=== PATIENT | female | born 1950 | race Caucasian/White ===

== ENCOUNTER 2017-02-02 14:02 | Day surgery (SDC) | payer MEDICARE, OTHER ==
[2016-11-09 16:43] VITALS: BP 136/66
--- OUTSIDE RECORDS SUMMARY | 2017-02-02 14:06 | XMS REPORT | Continuity of Care Document ---
:1950 Author Organization ([facility]) Address [address] [place] [address] Phone [phone] Care Team Providers Name Role Phone Alonso Howard Primary Care Provider [phone] Source Comments This disclosure is being made pursuant to the Care Everywhere program, applicable federal and state laws, and may not contain all informaitonavailable regarding this patient. ([facility]) Active Allergies and Adverse Reactions Allergen Noted Date Severity Reactions Comments [place] 06/28/2009 Angioedema Throat swelled, sweating, nervousness [place] Fl[place] 07/09/2012 Angioedema Throat swelling, sweating, nervousness Sulfadoxine Urticaria (Hives) Current Medications Prescription Sig. Disp. Refills Start Date End Date Status mirtazapine 15 mg Take 15 mg by mouth Active tablet at bedtime. multivitamin with Take 1 Tab by mouth Active minerals tablet daily. cyanocobalamin, Take 1 Tab by mouth Active VITAMIN B-12, PO daily. predniSONE 5 mg Take 5 mg by mouth Active tablet daily terbinafine HCl 1 % Apply topically Active cream daily as needed. (feet and between toes) oxyCODONE-acetamino Take 1 tablet by 60 tablet 0 04/27/2016 Active phen 10-325 mg per mouth 2 times daily tablet as needed. atorvastatin 80 mg Take 1 tablet (80 mg 30 tablet 1 05/05/2016 Active tablet total) by mouth at bedtime. nitroglycerin 0.4 Place 1 tablet (0.4 25 tablet 1 05/05/2016 Active mg SL tablet mg total) under the tongue every 5 minutes as needed for Chest pain. Maximum of 3 tablets in 15 minutes. famotidine 20 mg Take 1 tablet (20 mg 60 tablet 1 05/05/2016 Active tablet total) by mouth 2 times daily. aspirin 81 mg EC Take 1 tablet (81 mg 30 tablet 11 05/22/2016 Active tablet total) by mouth daily. ALPRAZolam 0.25 mg Take 0.25 mg by 0 07/02/2016 Active tablet mouth 3 times daily as needed. allopurinol 100 mg Take 200 mg by mouth Active tablet daily. tacrolimus 0.5 mg Take 1 capsule (0.5 60 capsule 0 10/12/2016 Active capsule mg total) by mouth 2 times daily. acetaminophen 325 Take 325-650 mg by Active mg tablet mouth every 6 hours as needed. furosemide 40 mg Take 1.5 tablets (60 90 tablet 0 12/01/2016 Active tablet mg total) by mouth 2 times daily. insulin lispro Inject 10 units 10 mL 2 12/01/2016 Active (HumaLOG) 100 subcutaneously unit/mL injection before meals. vial metoPROLol tartrate Take 1 tablet (25 mg 60 tablet 0 12/01/2016 Active 25 mg tablet total) by mouth every 12 hours. warfarin 1 mg Take 1 tablet (1 mg 30 tablet 0 12/01/2016 Active tablet total) by mouth every evening. ferrous sulfate 325 Take 1 tablet (325 90 tablet 0 12/02/2016 Active mg (65 mg iron) mg total) by mouth 3 tablet times daily. albuterol 2.5 mg/3 Use 3 mL by Active mL inhalation inhalation every 4 solution hours as needed. Active Problems Patient Care Coordination Note Family Conference: Family meeting was held on 05/12/2016 to discuss Goals of Care. Healthcare providers in attendance were primary team attending -Dr. Chuck Escobar -, Palliative Care attending -Dr. Brigid Doss-, and Palliative Care resident - Dr. Nicolas Carranza. Family members in attendance were patient, spouse -Elizabeth-, children -Ingris -, and Ingris's significant other -Nasir-. Aspects of patient's status discussed were medical status, prognosis, goals of care, functional status, DNR status and emotional support. Outcome of meeting was to "live longer without surgery" and stay as Full Code for now. Problem Noted Date Claudication, intermittent 10/19/2016 Shortness of breath 10/06/2016 Sepsis (A41.9) 08/26/2016 ICD (implantable cardioverter-defibrillator), biventricular, in situ 2015 Dyspnea on exertion 07/14/2016 Acute on chronic systolic congestive heart failure 07/14/2016 Diabetes mellitus type 2, uncontrolled 05/21/2016 Overview: A1c: 9.2 on 04/30/16 Essential hypertension, benign 05/21/2016 Chronic systolic heart failure, ACC/AHA stage C 05/21/2016 History of left bundle branch block (LBBB) 05/21/2016 Pulmonary hypertension, moderate to severe 05/21/2016 Moderate aortic insufficiency 05/21/2016 Paroxysmal atrial fibrillation 05/21/2016 Encounter for insertion of cardiac resynchronization therapy defibrillator (LENS MATCHER-D) - [employer] Acute on chronic systolic heart failure 05/21/2016 Acute kidney injury superimposed on chronic kidney disease 05/21/2016 Anticoagulation goal of INR 2 to 3 05/21/2016 Overview: Warfarin Documentation: Patient goal INR is 2.0-3.0 Duration of anticoagulation therapy: Indefinite Indication for anticoagulation therapy: Atrial Fibrillation Provider responsible for monitoring: PCP H/O: GI bleed 05/21/2016 Moderate aortic stenosis 05/21/2016 Goals of care, counseling/discussion 05/12/2016 Palliative care by specialist 05/12/2016 Acute cystitis without hematuria 05/03/2016 Chest pain 04/30/2016 NSTEMI (non-ST elevated myocardial infarction) 04/30/2016 Overview: Like Type II in the setting of ADHF and Cardiorenal Syndrome BCC (basal cell carcinoma) 01/13/2016 Urinary tract infection without hematuria 11/18/2015 Overview: Pain over renal transplant and LETICIA, responded to antibiotics and IVF. NICOLAS (renal artery stenosis) - transplant kidney 01/15/2015 Bleeding from wound 04/13/2014 Abdominal pain, left lower quadrant 04/13/2014 Cellulitis - gaspar. 02/19/2014 Open abdominal wall wound 01/09/2014 Urinary tract infection, E. coli 12/10/2013 Wound infection 12/10/2013 Fracture of femoral neck, left, closed 12/01/2013 Psoas abscess, left 12/01/2013 Severe left groin pain 11/30/2013 Atherosclerosis of [place] arteries of the extremities, unspecified 04/27/2013 Kidney replaced by transplant 03/07/2013 Overview: hx of kidney transplant on 02/25/13 CMV +D/-R. She has been maintained on Tacrolimus and Prednisone. Now appears to have non-oliguric LETICIA on CKD in allograft. Encounter for long-term (current) use of medications 03/07/2013 Overview: icd10 Aftercare following organ transplant 03/07/2013 Terminal aortic occlusion 03/01/2013 Thoracic aorta atherosclerosis 02/26/2013 Coarctation of aorta (preductal) (postductal) 02/25/2013 Overview: Discovered during renal transplant when flow in the iliacs was noted to be low considering pressures in the upper limbs. ESRD (end stage renal disease) 07/04/2012 Coronary artery disease 06/29/2012 Overview: S/p CABG in 2011 Anemia in chronic kidney disease(285.21) 03/15/2011 Secondary hyperparathyroidism of renal origin 03/15/2011 CKD (chronic kidney disease), stage V 12/19/2010 Gout 12/27/2009 HLD (hyperlipidemia) 12/27/2009 Osteoarthritis 12/27/2009 Vesicoureteral reflux with reflux nephropathy, NOS 01/23/2008 Resolved Problems Problem Noted Date Resolved Date Cardiogenic shock 04/30/2016 05/21/2016 Supratherapeutic INR 04/18/2016 05/21/2016 Volume depletion 11/18/2015 04/18/2016 Infection of vascular bypass graft 06/01/2014 06/05/2014 Pulmonary edema 12/10/2013 05/21/2016 Wound infection after surgery 03/22/2013 12/01/2013 Paroxysmal ventricular tachycardia 07/15/2012 07/15/2012 Hyperkalemia 07/04/2012 05/21/2016 Pre-transplant evaluation for CKD (chronic kidney disease) 02/19/20112013 Most Recent Encounters Date Type Specialty Providers Description 01/26/2017 Orders Only Transplant Camden Ureña, Dx: Kidney replaced JONNY/HOMER/ELKIN TAVERAS by transplant (Primary Dx) 01/04/2017 Hospital Encounter Radiology Tom Mac, Dx: H/O aortic coarctation repair 01/04/2017 Hospital Encounter Heart and Vascular Kai, Chief Comp: Patient MD Bridget Reported Reason For Visit 01/04/2017 Hospital Encounter Heart and Vascular Kai, Chief Comp: Patient MD Bridget Reported Reason For Visit 01/04/2017 Hospital Encounter Heart and Vascular Default, Other Chief Comp : Patient Billg - Defo Reported Reason For Kai, Visit MD Bridget 01/04/2017 Office Visit [facility] V[facility] Kai, Dx: Aortic MD Bridget coarctation (Primary Dx) 01/04/2017 Orders/Notes [facility] Von Roman GNP 12/10/2016 Orders Only Transplant Sanya Peterson, Dx: Kidney replaced DWIGHT TAVERAS by transplant (Primary Dx) 12/10/2016 Telephone Transplant Nella Green, Chief Comp: DWIGHT REYEZ Coordination Of Care 12/08/2016 Office Visit Heart and Vascular Lewis Young Dx: ICD ( implantable MD Jacob cardioverter-defibri llator), biventricular, in situ (Primary Dx) 12/04/2016 Office Visit Heart and Vascular Christiano Allen, Chief Comp: Patient MD Reported Reason For Visit 12/04/2016 Orders Only Transplant Camden Ureña, Dx: Kidney replaced DWIGHT TAVERAS by transplant (Primary Dx) 12/03/2016 Telephone Transplant Nella Green, Chief Comp: DWIGHT REYEZ Coordination Of Care 12/03/2016 Surgery General Surgery Kai, Canceled Carotid MD Bridget subclavian bypass and TEVAR 11/20/2016 Hospital Encounter Heart and Vascular Bridgette Sargent, Chief Comp: Patient IMAGE PROCESSING ENGINEER Reported Reason For Jose Luis Franklin Jr., MD 11/18/2016 Surgery Cardiology Arnie Modi Midline Catheter E, MD Placement 11/13/2016 Hospital Encounter Heart and Vascular Lewis Young Chief Comp: Venkata James MD Reported Reason For Visit 11/13/2016 Hospital Encounter Heart and Vascular Cecilia Higgins, Chief Comp: Patient Reported Reason For Visit 11/13/2016 Office Visit Heart and Vascular Christiano Allen, Dx: Chronic systolic MD heart failure, ACC/AHA stage C (Primary Dx) 11/13/2016 Surgery Radiology ANDREI Quinn OR PROCEDURE MD Bridget 11/13/2016 Surgery General Surgery Kai, coarctation repair MD Bridget with stent graft 11/12/2016 Anesthesia Event General Surgery Danial Mcclain MD 11/12/2016 Surgery Radiology Kai, Canceled VASJacob OR MD Bridget PROCEDURE 11/12/2016 Surgery General Surgery Kai, Canceled MATEO Gill MD 11/10/2016 Office Visit [facility] V[facility] Irene, Chief Comp: Patient MD Krish Reported Reason For Visit 11/10/2016 Hospital Encounter Heart and Vascular Irene, Chief Comp: Patient MD Krish Reported Reason For Visit 11/09/2016 - Hospital Encounter General Care Collin, Dx: Shortness of 12/02/2016 Inpatient - Adult MD Hazel breath (Primary Dx) Collin Freire MD Fatima, Urooj, MD Sharafuddin, Melhem, MD [place] Jayanna, Manju, MD Adhaduk, Mehul, MD Voruganti, Dani James MD 11/06/2016 Orders Only Transplant Sanya Peterson, Dx: Kidney replaced JONNY/DENISE TAVERAS by transplant (Primary Dx) 11/06/2016 Nurse Triage General Care Jennifer Rogers Chief Comp: IP Inpatient - Adult Gauri dairy helper Follow-up Call 11/06/2016 Telephone Transplant Nella Green, Chief Comp: DWIGHT REYEZ Coordination Of Care Immunizations Name Dates Previously Given Next Due Influenza, unspecified 09/18/2015,08/29/2009,10/06/2008,09/30/2000 Pneumococcal, unspecified 04/18/2012,12/26/2008 Social History Tobacco Use Types Packs/Day Years Used Date Former Smoker Cigarettes 1 1 Quit: 11/22/1982 Smokeless Tobacco: Never Used Tobacco Cessation:Counseling Given: Yes Comments:Quit 1982 Alcohol Use Drinks/Week oz/Week Comments No Last Filed Vital Signs Vital Sign Reading Time Taken Blood Pressure 135/77 01/04/2017 2:58 PM ENVIRONMENTAL SCIENCE PROFESSOR Pulse 78 01/04/2017 2:58 PM ENVIRONMENTAL SCIENCE PROFESSOR Temperature 37.8 C (100 F) 01/04/2017 2:58 PM ENVIRONMENTAL SCIENCE PROFESSOR Respiratory Rate 20 12/02/2016 7:32 AM ENVIRONMENTAL SCIENCE PROFESSOR Height 1.473 m (4' 9.99") 11/14/2016 1:58 PM ENVIRONMENTAL SCIENCE PROFESSOR Weight 63.4 kg (139 lb 12.4 oz) 12/02/2016 5:00 AM ENVIRONMENTAL SCIENCE PROFESSOR Body Mass Index 29.22 12/02/2016 5:00 AM ENVIRONMENTAL SCIENCE PROFESSOR Oxygen Saturation 100% 12/02/2016 7:32 AM ENVIRONMENTAL SCIENCE PROFESSOR Plan of Care Date Type Specialty Providers Description 07/05/2017 Appointment Heart and Vascular Bridget Quinn, Chief Comp: Patient MD Reported Reason For [address] [place] [address] [phone] (Fax) 07/05/2017 Appointment Srg Vascular Bridget Quinn, Chief Comp: Patient MD Reported Reason For [address] [place] [address] [phone] (Fax) Health Maintenance Due Date Last Done Comments Hepatitis B Vaccine (1 of 3 - 1950 Primary Series) Tdap Vaccine 1962 DIABETIC: Microalbumin 1969 Td Vaccine 1969 Cervical Cancer Screening 1981 Mammogram 1991 Colonoscopy 08/26/2001 DIABETIC: Foot Exam 05/05/2011 DIABETIC: Retinal Eye Exam 05/05/2011 Zoster Vaccine 2011 Influenza Vaccine: Seasonal 06/22/2016 09/18/2015, Additional history exists (#1) 08/29/2009, 10/06/2008 Osteoporosis Screening (DXA 2016 Bone Density) Pneumococcal Vaccine (1 of 2 2016 - PCV13) DIABETIC: Hemoglobin A1C 04/26/2017 10/26/2016, Additional history exists 04/30/2016, 04/19/2016 DIABETIC: Cholesterol 05/01/2017 05/01/2016, Additional history exists 12/23/2013, 05/30/2013 Diabetic: Hdl 05/01/2017 05/01/2016, Additional history exists 12/23/2013, 05/30/2013 Diabetic: Ldl 05/01/2017 05/01/2016, Additional history exists 12/23/2013, 05/30/2013 DIABETIC: Triglycerides 05/01/2017 05/01/2016, Additional history exists 12/23/2013, 05/30/2013 HCV Screening Completed 04/08/2011, 02/11/2011 Procedures from Last 3 Months Procedure Name Priority Date/Time Associated Comments Diagnosis ABSTRACTED BY BILLING Routine 11/13/2016 9:04 Shortness of breath Results for this STAFF PM ENVIRONMENTAL SCIENCE PROFESSOR procedure are in the results section. coarctation repair 11/13/2016 1:51 Shortness of breath with stent graft PM ENVIRONMENTAL SCIENCE PROFESSOR Results from Last [address] ANGIO CHEST, ABDOMEN& PELVIS W/WO ([id number], [id number]) (01/04/2017 2:49 PM) Impressions Impression: 1. Endovascular graft repair of the coarctation in the posterior part of the arch and upper descending thoracic aorta is appropriately located. No extravasation or endoleak seen. 2. Persistent bilateral right greater than left layering effusions, bibasilar consolidation and changes of chronic fluid overload appears stable. 3. Stable enlargement of the main pulmonary artery. Stable diffuse cardiomegaly. Mild right heart strain noted. 4. The abdomen and pelvis appears stable to the previous exam. Narrative Indication: Postop cooperation repair on 11/13/16 . Additional history from [facility] -past medical history of right renal transplant in 2012, coronary disease status post CABG in 2011, systolic heart failure, pulmonary HTN, AFib,Mild-moderate AI, HTN, Type 2 DM and history of aortic coarctation (distal to the left subclavian artery) s/p axillary femoral bypass at the time of transplant. Exam: CT angiogram of the chest, abdomen and pelvis. Study performed with 100 cc of Isovue-370. 3-D reconstructions and multiplanar reconstructions were reviewed. Comparison: CT chest abdomen and pelvis dated 12/21/2013. CT and U abdomen and pelvis dated 04/13/2014. Findings: The endovascular graft repair of the coarctation in the posterior part of the arch and upper descending thoracic aorta is appreciated. No endoleak seen. No extravasation of contrast. Chest: Changes of CABG appreciated. The rest of the thoracic and abdominal aorta grossly normal in caliber and shows scattered atherosclerotic changes. Diffuse cardiomegaly with four-chamber enlargement is stable. No pericardial effusion.. Enlarged main pulmonary artery is stable. No pulmonary thromboembolic disease. Right greater than left pleural effusions with compressive consolidation of the underlying lower lobes and mild pulmonary congestion in the lungs is noted. Changes appear similar to the radiograph of 11/27/2016. No pneumothorax seen. Postop changes in the sternum and mediastinum appreciated. The left chest wall pacemaker leads appear intact and terminate in the right atrium, right ventricle and coronary sinus. Multiple collaterals in the chest wall are appreciated again. The previously known Axillary femoral bypass has not opacified with contrast. Abdomen and pelvis: Mild reflux of contrast into the liver seen. Otherwise the abdominal organs including the presence of left anterior abdominal wall colostomy are stable. Multiple chronic diverticula are seen again. Small amount of ascites is noted. [place] kidneys are atrophic. The transplant kidney in the right upper quadrant is well opacified with contrast. Mild diffuse subcutaneous edema noted. Pelvic organs grossly unremarkable. No free air in the abdomen or pelvis. Urinary bladder shows a small diverticulum in the left lateral urinary bladder wall. Procedure Note Pelon, Incoming Imaging Results - Tue Jan 05, 2017 11:15 AM ENVIRONMENTAL SCIENCE PROFESSOR Indication: Postop cooperation repair on 11/13/16 . Additional history from [facility] -past medical history of right renal transplant in 2012, coronary disease status post CABG in 2011, systolic heart failure, pulmonary HTN, AFib, Mild-moderate AI, HTN, Type 2 DM and history of aortic coarctation (distal to the left subclavian artery) s/p axillary femoral bypass at the time of transplant. Exam: CT angiogram of the chest, abdomen and pelvis. Study performed with 100 cc of Isovue-370. 3-D reconstructions and multiplanar reconstructions were reviewed. Comparison: CT chest abdomen and pelvis dated 12/21/2013. CT and U abdomen and pelvis dated 04/13/2014. Findings: The endovascular graft repair of the coarctation in the posterior part of the arch and upper descending thoracic aorta is appreciated. No endoleak seen. No extravasation of contrast. Chest: Changes of CABG appreciated. The rest of the thoracic and abdominal aorta grossly normal in caliber and shows scattered atherosclerotic changes. Diffuse cardiomegaly with four-chamber enlargement is stable. No pericardial effusion.. Enlarged main pulmonary artery is stable. No pulmonary thromboembolic disease. Right greater than left pleural effusions with compressive consolidation of the underlying lower lobes and mild pulmonary congestion in the lungs is noted. Changes appear similar to the radiograph of 11/27/2016. No pneumothorax seen. Postop changes in the sternum and mediastinum appreciated. The left chest wall pacemaker leads appear intact and terminate in the right atrium, right ventricle and coronary sinus. Multiple collaterals in the chest wall are appreciated again. The previously known Axillary femoral bypass has not opacified with contrast. Abdomen and pelvis: Mild reflux of contrast into the liver seen. Otherwise the abdominal organs including the presence of left anterior abdominal wall colostomy are stable. Multiple chronic diverticula are seen again. Small amount of ascites is noted. [place] kidneys are atrophic. The transplant kidney in the right upper quadrant is well opacified with contrast. Mild diffuse subcutaneous edema noted. Pelvic organs grossly unremarkable. No free air in the abdomen or pelvis. Urinary bladder shows a small diverticulum in the left lateral urinary bladder wall. IMPRESSION Impression: 1. Endovascular graft repair of the coarctation in the posterior part of the arch and upper descending thoracic aorta is appropriately located. No extravasation or endoleak seen. 2. Persistent bilateral right greater than left layering effusions, bibasilar consolidation and changes of chronic fluid overload appears stable. 3. Stable enlargement of the main pulmonary artery. Stable diffuse cardiomegaly. Mild right heart strain noted. 4. The abdomen and pelvis appears stable to the previous exam. EXTERNAL CO2 (12/16/2016 9:25 AM) Component Value Range Ext CO2 35.4(H) 4-32.6 mmol/L Narrative Verified by Tanya Acevedo on 12/16/2016. EXTERNAL PLATELET COUNT (12/16/2016 9:25 AM) Component Value Range Ext Platelet Count 293 150-450 K/mm3 Narrative Verified by Tanya Acevedo on 12/16/2016. EXTERNAL WBC (12/16/2016 9:25 AM) Component Value Range Ext WBC Count 7.7 4.0-10.5 K/mm3 Narrative Verified by Tanya Acevedo on 12/16/2016. EXTERNAL HEMOGLOBIN (12/16/2016 9:25 AM) Component Value Range Ext Hemoglobin 8.8(L) 12.5-16.0 Narrative Verified by Tanya Acevedo on 12/16/2016. EXTERNAL POTASSIUM (12/16/2016 9:25 AM) Component Value Range Ext Potassium 4.4 3.4-4.6 mmol/L Narrative Verified by Tanya Acevedo on 12/16/2016. EXTERNAL CREATININE (12/16/2016 9:25 AM) Component Value Range Ext Creatinine 1.48(H) mg/dL Narrative Verified by Tanya Acevedo on 12/16/2016. EXTERNAL BLOOD UREA NITROGEN (BUN) (12/16/2016 9:25 AM) Component Value Range Ext BUN 46(H) 3-23 mg/dL Narrative Verified by Tanya Acevedo on 12/16/2016. EXTERNAL TACROLIMUS DRUG LEVEL (12/16/2016) Component Value Range Ext Tacrolimus 7.1 5-15 NG/ML BLOOD GLUCOSE, BEDSIDE (12/02/2016 8:42 AM)Only the most recent of83 resultswithin the time period is included. Component Value Range Glucose, Accu-Chek 163(H) 65-99 mg/dL Specimen Blood, capillary IRON PANEL (IRON, TRANSFERRIN AND % SATURATION) (12/01/2016 5:01 AM) Component Value Range Iron, Blood 25(L) 37-145 g/dL Transferrin 139(L) 200-360 mg/dL Iron % Saturation 13(L)Comment: 15-50 % Transferrin saturation is not reliable when there are high ferritin concentrations greater than 1,200 ng/mL. Specimen Blood FERRITIN (12/01/2016 5:01 AM) Component Value Range Ferritin 765.9(H) 13.0-150.0 ng/mL Specimen Blood TACROLIMUS DRUG LEVEL (12/01/2016 5:01 AM)Only the most recent of19 resultswithin the time period is included. Component Value Range Tacrolimus Drug Level 4.0(L)Comment: 5.0-20.0 ng/mL Analysis performed using the [employer] Tacrolimus immunoassay on the [employer]elry [employer]er platform. The general therapeutic range for tacrolimus is 5-20 ng/ mL. The optimal therapeutic range for a given patient may differ from this suggested range based on the indication for therapy, treatment phase (initiation or maintenance), use in combination with other drugs, time of specimen collection relative to prior dose, type of transplanted organ, and/or the therapeutic approach of the transplant center. Specimen Whole Blood PT/INR (PROTHROMBIN TIME/INR) VENOUS (12/01/2016 5:01 AM)Only the most recent of11 resultswithin the time period is included. Component Value Range PT (Prothrombin Time) 26(H) 9-12 secs INR 2.7 <4.0 Specimen Blood BASIC METABOLIC PANEL W/ CALCIUM (CHEM 8) (12/01/2016 5:01 AM)Only the most recent of24 resultswithin the time period is included. Component Value Range Sodium 141 135-145 mEq/L Potassium 3.9 3.5-5.0 mEq/L Chloride 103 95-107 mEq/L CO2 28 22-29 mEq/L Anion Gap 10 8-18 mEq/L BUN 37(H) 10-20 mg/dL Creatinine 1.2(H)Comment: 0.5-1.0 mg/dL Creatinine switched to enzymatic method on 03/31/2011.GFR equation switched to IDMS-traceable MDRD equation on 03/31/2011. Calculated GFR values are not valid in clinical settings where serum creatinine is changing. Glucose 80Comment: 65-99 mg/dL The Expert Committee on the Diagnosis and Classification of Diabetes has defined impaired fasting glucose as greater than or equal to 100 mg/dL but less than 126 mg/dL.(Diabetes Care 28 (Suppl 1)S41,2005) Calcium 8.7 8.5-10.5 mg/dL Calculated GFR 45(L) >60 mL/min/1.73 m2 Specimen Blood CBC (COMPLETE BLOOD COUNT) (12/01/2016 5:01 AM)Only the most recent of19 resultswithin the time period is included. Component Value Range WBC Count 7.4 3.7-10.5 K/MM3 RBC Count 2.58(L) 4.00-5.20 M/MM3 Hemoglobin 7.9(L) 11.9-15.5 g/dL Hematocrit 27(L) 35-47 % MCV (Mean Corpuscular Volume) 106(H) 82-99 FL MCH (Mean Corpuscular Hemoglobin) 31 25-35 PG MCHC (Mean Corpuscular Hemoglobin Concentration) 29(L) 32-36 % Platelet Count 231 150-400 K/MM3 MPV (Mean Platelet Volume) 9.5 9.4-12.3 FL RBC Dist Width-STD 83.8(H) 36.4-46.3 FL RBC Distrib Width 21.5(H) 9.0-14.5 % Nucleated RBC 0 /100 WBC Specimen Whole Blood CHEST- PA& LATERAL (11/27/2016 12:57 PM) Impressions Findings/Impression: Cardiomegaly with moderate vascular congestion is stable. Bibasilar paramedian consolidation, consistent with atelectasis/collapse is stable. A moderate right pleural effusion has increased slightly from prior. Prominent diffuse vascular calcifications are stable. A right PICC terminates in the mid right subclavian. Right atrial and biventricular pacing leads as well as aortic stent appear stable. Narrative Procedure: CHEST- PA & LATERAL Clinical Indication: Shortness of breath,? Pleural effusion Technique: PA and lateral chest radiograph Comparison: Chest radiographs dated 11/09/2016 through 11/17/2016. Procedure Note [facility], Incoming Imaging Results - WedNov 27, 2016 1:09 PM ENVIRONMENTAL SCIENCE PROFESSOR Procedure: CHEST- PA & LATERAL Clinical Indication: Shortness of breath,? Pleural effusion Technique: PA and lateral chest radiograph Comparison: Chest radiographs dated 11/09/2016 through 11/17/2016. IMPRESSION Findings/Impression: Cardiomegaly with moderate vascular congestion is stable. Bibasilar paramedian consolidation, consistent with atelectasis/collapse is stable. A moderate right pleural effusion has increased slightly from prior. Prominent diffuse vascular calcifications are stable. A right PICC terminates in the mid right subclavian. Right atrial and biventricular pacing leads as well as aortic stent appear stable. BLOOD CELL MORPHOLOGY (11/27/2016 6:28 AM)Only the most recent of6 resultswithin the time period is included. Component Value Range Schistocytes 1+ Tear Drop 1+ Basophilic Stippling Present Specimen Whole Blood POTASSIUM (11/26/2016 4:12 PM) Component Value Range Potassium 4.7 3.5-5.0 mEq/L Specimen Blood ECHO ADULT - ECHOCARDIOGRAM, TRANSTHORACIC (11/20/2016 7:53 AM) Component Value Range Interpretation Summary TRANSTHORACIC ECHOCARDIOGRAM S/p TAVR on 11/13/2016.Complex story includes PVD, coarctation of the aorta (pre- and post-ductal).NSTEMI (demannd).TTE for progress and surveillance. Upper limit of normal left ventricular size. Mild concentric left ventricular hypertrophy Severely decreased LV systolic function. LV Ejection Fraction=28% (based on Biplane Method of Discs).Unchanged. Prior LVEF 32% by Ron/s rule. E/E' ratio is 32, which predicts an elevated LV filling pressure. Gr 4 LV diastolic dysfunction (irreversible restrictive pattern). Left ventricular global hypokinesis Mild mitral regurgitation by color Doppler. Moderate to severe Tricuspid regurgitation by Doppler. RV/RA peak instantaneous systolic gradient=64mmHg. Doppler findings support moderate pulmonary hypertension Patient Height (cm) 144.8 cm Patient Weight (kg) 66.2 kg Systolic Pressure (mmHg) 127 mmHg Diastolic Pressure (mmHg) 82 mmHg BSA (meters^2) 1.6 m^2 Left Ventricle (LV) Upper limit of normal left ventricular size. Mild concentric left ventricular hypertrophy Severely decreased LV systolic function. LV Ejection Fraction=28% (based on Biplane Method of Discs). E/E' ratio is 32, which predicts an elevated LV filling pressure. Gr 4 LV diastolic dysfunction (irreversible restrictive pattern). Left ventricular global hypokinesis Right Ventricle (RV) Visualization of the RV chamber is limited due to shadowing artifact There is a pacemaker lead in the right ventricle. Right ventricular function cannot be assessed due to poor image quality. Left and Right Atria (LA, RA) Severely enlarged left atrial size. LA ESV index=48 ml/m2. Severely enlarged right atrial chamber size Mitral Valve (MV) Moderately calcified mitral annulus Mild mitral regurgitation by color Doppler. Tricuspid Valve (TV) Catheter induced TR, moderate. Moderate to severe Tricuspid regurgitation by Doppler. RV/RA peak instantaneous systolic gradient=64mmHg. Doppler findings support moderate pulmonary hypertension Aortic Valve (AoV) Mild to moderate aortic insufficiency by doppler. Central AI jet. AoV doppler pressure [id number] TAVR (bioprosthetic) Aortic valve peak instantaneous gradient=21 mmHg. Aortic valve mean gradient=9 mmHg. Procedures Complete 2D with Doppler, Color Flow and image documentation ( [id number]) I personally viewed the echocardiogram and approve the above interpretation Inf. Vena Cava (IVC) / Pulm. Veins A normal IVC diameter which collapses less than 50% would support an RA pressure of 8 mmHg (range 5-10 mmHg). Technical Comments Unable to move patient - Imaging performed in supine position Primary ICD-9 Code Aortic valve disorders (424.1) Bioprosthetic valve replacement (V42.2) IVSd 1.2 cm LVIDd 4.6 cm LVIDs 4.2 cm LVPWd 1.1 cm IVS/LVPW 1.1 LA dimension 4.4 cm LVAd ap4 28.8 cm^2 EF(MOD-sp4) 24.5 % MV E max vinh 142.1 cm/sec MV A max vinh 72.6 cm/sec MV E/A 2.0 MV dec time 0.18 sec Ao V2 max 218.5 cm/sec Ao max PG 19.2 mmHg Ao max PG (full) 14.1 mmHg Ao V2 mean 137.1 cm/sec Ao mean PG 8.7 mmHg Ao V2 VTI 39.3 cm AI dec slope 347.4 cm/sec^2 AI P1/2t 313.0 msec LV V1 max 112.7 cm/sec LV V1 mean 76.3 cm/sec LV V1 VTI 23.4 cm TR Max vinh 397.7 cm/sec Low Range of LVEF 28 High Range of LVEF 28 Reason For Study S/p TAVR for coarctation of aorta Pharmacy Analyst Gerri Yanes Interpreting Physician Jose Luis Franklin MD electronically signed on 2016-11-20 10:19:24.007 HAIRSPRING ADJUSTER MIDLINE (ONLY ORDERED BY PICC TEAM) (11/18/2016 5:15 PM)DIFFERENTIAL ( 11/18/2016 4:18 PM)Only the most recent of2 resultswithin the time period is included. Component Value Range % Neutrophils-Auto Diff 93.4 % Neutrophils-Auto Diff 33873(H) 4168-2971 /MM3 % Lymphocytes-Auto Diff 1.7 % Lymphocytes-Auto Diff 190(L) 875-3300 /MM3 % Monocytes-Auto Diff 3.4 % Monocytes-Auto Diff 380 130-860 /MM3 % Eosinophils-Auto Diff 0.5 % Eosinophils-Auto Diff 60 40-390 /MM3 % Basophils 0.1 % Basophils-Auto Diff 10 10-136 /MM3 % Immature Granulocytes-Auto Diff 0.9 % Immature Granulocytes-Auto Diff 100 /MM3 Specimen Whole Blood CBC (COMPLETE BLOOD COUNT) (11/18/2016 4:18 PM)Only the most recent of2 resultswithin the time period is included. Component Value Range WBC Count 11.3(H) 3.7-10.5 K/MM3 RBC Count 3.17(L) 4.00-5.20 M/MM3 Hemoglobin 10.0(L) 11.9-15.5 g/dL Hematocrit 32(L) 35-47 % MCV (Mean Corpuscular Volume) 102(H) 82-99 FL MCH (Mean Corpuscular Hemoglobin) 32 25-35 PG MCHC (Mean Corpuscular Hemoglobin Concentration) 31(L) 32-36 % Platelet Count 196 150-400 K/MM3 MPV (Mean Platelet Volume) 9.8 9.4-12.3 FL RBC Dist Width-STD 73.8(H) 36.4-46.3 FL RBC Distrib Width 20.1(H) 9.0-14.5 % Nucleated RBC 0 /100 WBC Specimen Whole Blood CBC WITH DIFFERENTIAL (11/18/2016 4:18 PM)Only the most recent of2 resultswithin the time period is included. Specimen Whole Blood Narrative The following orders were created for panel order CBC WITH DIFFERENTIAL. Procedure Abnormality Status --------- ------ CBC (COMPLETE BLOOD COUNT)[[id number]] AbnormalFinal result DIFFERENTIAL[[id number]] AbnormalFinal result Please view results for these tests on the individual orders. URINE MICROSCOPIC (11/18/2016 3:21 PM)Only the most recent of2 resultswithin the time period is included. Component Value Range White Blood Cells, Urine 64(H) 0-5 /HPF Red Blood Cells, Urine 22(H) 0-2 /HPF Bacteria, Urine Few(A) /HPF Squamous Epithelial Cells, Urine 34(H) <=10 /LPF Transitional Epithelial Cells, Urine 6 <=10 /LPF Hyaline Cast, Urine 65(H) <=10 /LPF Mucous-Urine Rare None, Rare Specimen Urine URINALYSIS (11/18/2016 3:21 PM)Only the most recent of2 resultswithin the time period is included. Component Value Range Color, Urine Sima(A) Straw, Pale Yellow, Yellow, Clear, None Clarity, Urine Slightly Cloudy(A) Clear pH, Urine 5.0 <9.0 Glucose, Urine Negative Negative Blood, Urine 1+(A) Negative Ketones, Urine Negative Negative Protein, Urine 2+(A) Negative Urobilinogen, Urine Normal Normal Bilirubin, Urine Negative Negative Leukocyte Esterase, Urine 3+(A) Negative Nitrite, Urine Negative Negative Spec Jefferson, Urine 1.025 1.000-1.030 Specimen Urine CHEST - AP/PA (11/17/2016 11:39 AM)Only the most recent of5 resultswithin the time period is included. Impressions Impression: Stable exam. Persistent moderate-sized right pleural effusion. Narrative Procedure: CHEST - AP/PA Technique: Portable AP chest radiograph Comparison: Chest radiograph(s) dated: 11/15/2016. Clinical Indication: Hypoxia, dyspnea Findings: Stable moderate-sized right pleural effusion, allowing for differences in positioning. No pneumothoraces. No lobar consolidations. Stable moderate cardiomegaly, without overt pulmonary vascular congestion. Stable postoperative changes in the mediastinum. Procedure Note [facility], Incoming Imaging Results - Tue Nov 17, 2016 5:46 PM ENVIRONMENTAL SCIENCE PROFESSOR Procedure: CHEST - AP/PA Technique: Portable AP chest radiograph Comparison: Chest radiograph(s) dated: 11/15/2016. Clinical Indication: Hypoxia, dyspnea Findings: Stable moderate-sized right pleural effusion, allowing for differences in positioning. No pneumothoraces. No lobar consolidations. Stable moderate cardiomegaly, without overt pulmonary vascular congestion. Stable postoperative changes in the mediastinum. IMPRESSION Impression: Stable exam. Persistent moderate-sized right pleural effusion. ABDOMEN AP SUPINE (11/17/2016 11:39 AM) Narrative Procedure: ABDOMEN AP SUPINE Clinical Indication: Abdominal pain Comparison: 12/11/2013 Findings / Impression: Bowel gas pattern is nonobstructive. 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 Cholecystectomy clips in the right upper quadrant. Scattered vascular calcifications. Bones are normal for age. Procedure Note [facility], Incoming Imaging Results - Tue Nov 17, 2016 5:42 PM ENVIRONMENTAL SCIENCE PROFESSOR Procedure: ABDOMEN AP SUPINE Clinical Indication: Abdominal pain Comparison: 12/11/2013 Findings / Impression: Bowel gas pattern is nonobstructive. 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 Cholecystectomy clips in the right upper quadrant. Scattered vascular calcifications. Bones are normal for age. LACTIC ACID, WHOLE BLOOD ([facility]) (11/17/2016 10:55 AM)Only the most recent of4 resultswithin the time period is included. Component Value Range Lactic Acid, Whole Blood 0.8Comment: 0.5-2.0 mEq/L Glycolate, the principle toxic metabolite of ethylene glycol, can cause artifactual elevation of measured lactate. Specimen Blood PTT (PARTIAL THROMBOPLASTIN TIME) (11/17/2016 6:37 AM)Only the most recent of13 resultswithin the time period is included. Component Value Range PTT 30 22-31 secs Specimen Blood POTASSIUM ([facility]) (11/14/2016 12:52 AM)Only the most recent of2 resultswithin the time period is included. Component Value Range Potassium, Whole Blood 4.5Comment: 3.5-5.0 mEq/L Sample run on whole blood.Hemolysis is not measured. Specimen Blood VASC OR CASE (11/13/2016 9:04 PM) Narrative Bridget Quinn MD 11/13/20169:04 PM OR CASE: coarctation repair with stent graft Post-Op Procedure Note - Vascular Surgery Date: 11/13/16 Service: Surgery-Vascular Location: MAIN OR Preoperative Diagnosis: * Shortness of breath [R06.02] Operation/Procedure: coarctation repair with stent graft (Bilateral) Postoperative Diagnosis: * Shortness of breath [R06.02] Surgeon(s): * Bridget Quinn MD - Primary * Rogelio Valenzuela MD - Resident - Assisting Findings: See below Estimated Blood Loss: None/Minimal Specimens: None Anesthesia:General Fluid Replacement: lactated ringers (LR) continuous infusion: 400 ml sodium chloride 0.9% continuous infusion: 100 ml Implants: Implant Name Type Inv. Item Serial No. Seals Engraver Lot No. LRB No. Used Action STENT CP COVERED MOUNTED 20MM X 4CM [id number] - [id number] STENT CP COVERED MOUNTED 20MM X 4CM [id number] B_[id number] N/A 1 Implanted Fluoro Time:13.4 minutes Radiation Dose:1139 mGy Anticoagulation: HEParin 1000 unit/mL injection: 6000 Units protamine 10 mg/mL injection: 20 mg Operative Report Completion: See separate report by Dr. Quinn Post-Op Plan: Drains: None Antibiotics: Prophylactic Anticoagulation: Not indicated Post Op Studies/Consults: Not applicable Intended Discharge: Unknown Intended Outpatient Follow-Up: One Month Intended Outpatient Studies: Not Applicable Other: Not Applicable ECG - EKG 12 LEAD (11/13/2016 7:35 PM)Only the most recent of3 resultswithin the time period is included. Component Value Range ECG SEVERITY - ABNORMAL ECG - VENT. RATE 63 bpm RR 952 ms P-R INTERVAL 147 ms QRSD INTERVAL 148 ms QT INTERVAL 508 ms QTC INTERVAL 521 ms P AXIS 44 degrees QRS AXIS 207 degrees T WAVE AXIS 141 degrees REPORT A-V DUAL-PACED RHYTHM WITH SOME INHIBITION [Remains] SIGNIFICANT RATE DECREASE Interpreting Physician: Jose Luis Franklin MD VASC OR PROCEDURE (11/13/2016 6:55 PM)ARTERIAL BLOOD GAS ([facility]) (11/13/2016 6:38 PM)Only the most recent of3 resultswithin the time period is included. Component Value Range pH, Arterial 7.31(L) 7.35-7.45 pCO2, Arterial 42 35-45 torr pO2, Arterial 151(H) 80-90 torr Base Excess, Arterial -5(L) -2-2 mEq/L Bicarbonate, Arterial 21(L) 22-26 mEq/L Total CO2, Arterial 22(L) 24-32 mEq/L Temperature, Arterial 37.0 Degrees C Specimen Blood PHOSPHORUS (11/13/2016 6:38 PM) Component Value Range Phosphorus 5.1(H)Comment:New reference range installed 09/03/15. 2.5-4.5 mg/ dL Specimen Blood MAGNESIUM (11/13/2016 6:38 PM)Only the most recent of3 resultswithin the time period is included. Component Value Range Magnesium 2.3 1.5-2.9 mg/dL Specimen Blood RED BLOOD CELLS DISPENSE FROM BLOOD BANK (11/13/2016 5:18 PM)Only the most recent of2 resultswithin the time period is included. Component Value Range Blood Coding System [id number] Blood Product Volume 325 Blood Product ABORH A Pos Blood Unit Number [id number] BLOOD DISPENSE STATUS RET Blood Product Type Red Blood Cells Blood Product Code [id number] Blood Coding System [id number] Blood Product Volume 325 Blood Product ABORH A Pos Blood Unit Number [id number] BLOOD DISPENSE STATUS RET Blood Product Type Red Blood Cells Blood Product Code [id number] Blood Coding System [id number] Blood Product Volume 325 Blood Product ABORH A Pos Blood Unit Number [id number] BLOOD DISPENSE STATUS RET Blood Product Type Red Blood Cells Blood Product Code G6264A89 Blood Coding System [id number] Blood Product Volume 325 Blood Product ABORH A Pos Blood Unit Number [id number] BLOOD DISPENSE STATUS RET Blood Product Type Red Blood Cells Blood Product Code [id number] ACTIVATED CLOTTING TIME - OR (11/13/2016 3:40 PM) Component Value Range ACT (Activated Clotting Time) - OR 245(H) 74-137 secs Specimen Blood FIBRINOGEN (11/13/2016 2:16 PM) Component Value Range Fibrinogen 345 180-400 mg/dL Specimen Blood GLUCOSE ([facility]) (11/13/2016 2:16 PM) Component Value Range Glucose, Whole Blood 118(H) 65-99 mg/dL Specimen Blood CHLORIDE ([facility]) (11/13/2016 2:16 PM) Component Value Range Chloride, Whole Blood 109(H) 95-107 mEq/L Specimen Blood SODIUM ([facility]) (11/13/2016 2:16 PM) Component Value Range Sodium, Whole Blood 138 135-145 mEq/L Specimen Blood HEMOGLOBIN& CALCULATED HEMATOCRIT - ([facility]) (11/13/2016 2: 16 PM) Component Value Range Hemoglobin - CCL 10.8(L) 11.9-15.5 g/dL Hematocrit (Calc) - CCL 33(L) 35-47 % Specimen Blood CALCIUM, IONIZED ([facility]) (11/13/2016 2:16 PM) Component Value Range Ionized Calcium 4.9 3.8-5.2 mg/dL Specimen Blood ECHO ADULT - INTRAOPERATIVE ECHOCARDIOGRAPHIES TRANSESOPHAGEAL (11/13/2016 2: 11 PM) Component Value Range Interpretation Summary TRANSESOPHAGEAL ECHOCARDIOGRAM Limited VASILE for intraopertive monitoring Moderate to severely decreased LV function Estimated EF 34% by Ron's methos Dilated LV Dilated RV AICD/ Pacemaker lead visualized in the RV Moderate MR Mild TR Mild AR Coaractation of aorta noticed in the distal part of arch and proximal descending aorta Stent visualized and blood flow demostrated after stent placement No significant change in the cardaic evaluation after stent placement Left Ventricle (LV) Moderately enlarged left ventricle. No obvious LV thrombus noted. Probably normal LV wall thickness. Moderate to severely decreased LV systolic function. (Ron's Rule) LV Ejection Fraction=34%. No regional wall motion abnormalities noted. Right Ventricle (RV) Moderately enlarged right ventricular size. There is a pacemaker lead in the right ventricle. There is normal right ventricular wall thickness. Moderately decreased right ventricular systolic function Left and Right Atria (LA, RA) LA chamber size: enlarged. Enlarged right atrial size. Mitral Valve (MV) Thickened mitral valve leaflets Calcified mitral annulus. Mild mitral stensosi based on color flow doppler Moderate mitral regurgitation by color Doppler. Tricuspid Valve (TV) Probably normal tricuspid valve morphology Mild Tricuspid regurgitation by color Doppler. Aortic Valve (AoV) Aortic valve leaflets appear calcified. Thickened aortic valve leaflets Trileaflet Aortic valve Mild aortic insufficiency by color Doppler. Mild aortic valve stenosis. Pulmonic Valve (PV) Visualization of the Pulmonic Valve is limited Aorta and Pulmonary Artery (Ao, PA) The aortic root is normal size. The aortic root, when measured at the annulus, is normal in size. Aortic coarctation is present. Descending aorta atheroma noted The pulmonary artery is normal size. Pericardium/Pleura Small left pleural effusion Procedures VASILE ([id number]) Limited Doppler ([id number]) Color Flow ([id number]) 3D echocardiogram without postprocessing ([id number]) I was present for the entire procedure Inf. Vena Cava (IVC) / Pulm. Veins IVC not visualized LVAd ap4 32.5 cm^2 EF(MOD-sp4) 33.9 % Low Range of LVEF 34 High Range of LVEF 34 Reason For Study Intra op VASILE for hemodynamic monitroing - stent in the arch and desecding aorta Pharmacy Analyst Flaquito Stokes Interpreting Physician Flaquito Stokes MD electronically signed on 2016-11-16 14:02:57.59 UREA NITROGEN-URINE,RANDOM (11/12/2016 3:14 PM) Component Value Range Urea Nitrogen, Urine, Random 146 mg/dL Specimen Urine CREATININE-URINE, RANDOM (11/12/2016 3:14 PM) Component Value Range Creatinine, Urine, Random 87.8 mg/dL Specimen Urine URINE CULTURE, ROUTINE AEROBIC (11/12/2016 3:14 PM) Component Value Range Quantitative Culture >100,000 CFU/mL Citrobacter amalonaticus(A) Quantitative Culture >100,000 CFU/mL Citrobacter amalonaticus(A)Comment:#2 Specimen Culture - Urine, Midstream clean catch Narrative Identification performed by MALDI-TOF mass spectrometry (MS).The performance characteristics of MALDI-TOF MS were determined by the [facility].It has not been cleared orApproved by the FDA. The FDA has determined that such clearance or approval is not necessary.This test is for clinical purposes. It should not be regarded as investigational or for research.The laboratory is certified under the Clinical Laboratory Improvement Amendments of 1988 (CLIA) as qualified to perform high complexity clinical laboratory testing. Organism Antibiotic Method Susceptibility Citrobacter amalonaticus CEFTRIAXONE <=1: Susceptible Citrobacter amalonaticus CIPROFLOXACIN <=0.25: Susceptible Citrobacter amalonaticus GENTAMICIN <=1: Susceptible Citrobacter amalonaticus NITROFURANTOIN <=16: Susceptible Citrobacter amalonaticus PIPERACILLIN/TAZOBACTAM <=4: Susceptible Citrobacter amalonaticus TRIMETHOPRIM/SULFA <=1: Susceptible Citrobacter amalonaticus CEFAZOLIN 32: Intermediate Citrobacter amalonaticus CEFTRIAXONE <=1: Susceptible Citrobacter amalonaticus CIPROFLOXACIN <=0.25: Susceptible Citrobacter amalonaticus GENTAMICIN <=1: Susceptible Citrobacter amalonaticus NITROFURANTOIN 32: Susceptible Citrobacter amalonaticus PIPERACILLIN/TAZOBACTAM <=4: Susceptible Citrobacter amalonaticus TRIMETHOPRIM/SULFA <=1: Susceptible Citrobacter amalonaticus CEFAZOLIN 32: Intermediate PLATELET COUNT (11/12/2016 4:46 AM)Only the most recent of2 resultswithin the time period is included. Component Value Range Platelet Count 210 150-400 K/MM3 Specimen Whole Blood HEMOGLOBIN (11/12/2016 4:46 AM) Component Value Range Hemoglobin 10.7(L) 11.9-15.5 g/dL Specimen Whole Blood MICROSCOPIC URINALYSIS (11/11/2016 6:33 PM) Component Value Range White Blood Cells, Urine >180(H) 0-5 /HPF Red Blood Cells, Urine 7(H) 0-2 /HPF Bacteria, Urine Few(A) /HPF Squamous Epithelial Cells, Urine 204(H) <=10 /LPF Transitional Epithelial Cells, Urine 5 <=10 /LPF Renal Tubular Cells, Urine 8(H) <1 /LPF Mucous-Urine Rare None, Rare Specimen Urine URINALYSIS WITH REFLEX CULTURE (11/11/2016 6:33 PM) Component Value Range Color, Urine Sima(A) Straw, Pale Yellow, Yellow, Clear, None Clarity, Urine Cloudy(A) Clear pH, Urine 7.0 <9.0 Spec Jefferson, Urine 1.015 1.000-1.030 Glucose, Urine Negative Negative Blood, Urine 1+(A) Negative Ketones, Urine Negative Negative Protein, Urine 2+(A) Negative Urobilinogen, Urine Normal Normal Bilirubin, Urine Negative Negative Leukocyte Esterase, Urine 3+(A) Negative Nitrite, Urine Negative Negative Specimen Urine URINALYSIS WITH REFLEXED CULTURE AND MICROSCOPIC EXAM (11/11/2016 6:33 PM) Specimen Culture - Urine, Midstream clean catch Narrative The following orders were created for panel order URINALYSIS WITH REFLEXED CULTURE AND MICROSCOPIC EXAM. Procedure Abnormality Status --------- ------ URINALYSIS WITH REFLEX C...[[id number]]AbnormalFinal result MICROSCOPIC URINALYSIS[[id number]] Abnormal Final result URINE CULTURE, REFLEXED[[id number]]Abnormal Final result Please view results for these tests on the individual orders. URINE CULTURE, REFLEXED (11/11/2016 6:33 PM) Component Value Range Quantitative Culture >100,000 CFU/mL Citrobacter amalonaticus(A) Specimen Culture - Urine, Midstream clean catch Narrative Identification performed by MALDI-TOF mass spectrometry (MS).The performance characteristics of MALDI-TOF MS were determined by the [facility].It has not been cleared orApproved by the FDA. The FDA has determined that such clearance or approval is not necessary.This test is for clinical purposes. It should not be regarded as investigational or for research.The laboratory is certified under the Clinical Laboratory Improvement Amendments of 1988 (CLIA) as qualified to perform high complexity clinical laboratory testing. Organism Antibiotic Method Susceptibility Citrobacter amalonaticus AMPICILLIN >=32: Resistant Citrobacter amalonaticus AMPICILLIN/SULBACTAM <=2: Susceptible Citrobacter amalonaticus CEFTRIAXONE <=1: Susceptible Citrobacter amalonaticus CIPROFLOXACIN <=0.25: Susceptible Citrobacter amalonaticus GENTAMICIN <=1: Susceptible Citrobacter amalonaticus NITROFURANTOIN 64: Intermediate Citrobacter amalonaticus PIPERACILLIN/TAZOBACTAM <=4: Susceptible Citrobacter amalonaticus TRIMETHOPRIM/SULFA <=1: Susceptible Citrobacter amalonaticus CEFAZOLIN >=64: Resistant TYPE AND SCREEN (BLOOD TYPE(ABORH) AND RBC ANTIBODY SCREEN) (11/11/2016 10:34 AM ) Component Value Range ABORH A Positive Specimen Expiration Date 2016-11-14 Antibody Screen Negative Specimen Blood TROPONIN T (11/10/2016 1:14 PM)Only the most recent of4 resultswithin the time period is included. Component Value Range Troponin-T 0.29(H) <=0.10 ng/mL Specimen Blood VASC LOWER EXT VENOUS DUPLEX (UNILATERAL) (11/10/2016 11:57 AM)CHEST- AP& LATERAL (11/09/2016 7:14 PM) Addenda Addendum by Ranjan Kraft MD on 11/09/2016 8:33 PM Final report was reviewed with Dr. Roper at 8:33 PM. Impressions Findings/impression: The right-sided ICD is unchanged. Postoperative changes in the mediastinum otherwise grossly similar to prior evaluation. There is mild increase in the pre-existing right pleural effusion with associated right base opacity which could be atelectasis or pneumonia. Stable enlarged cardiac mediastinal silhouette. There is mild to moderate pulmonary vascular congestion, slightly worse. Narrative Procedure: CHEST- AP & LATERAL Technique: AP and lateral chest radiograph Comparison: 10/26/2016. Clinical Indication: Shortness of breath. A. fib, coarctation of the aorta Procedure Note Pelon, Incoming Imaging Results - Mon Nov 09, 2016 7:49 PM ENVIRONMENTAL SCIENCE PROFESSOR Procedure: CHEST- AP & LATERAL Technique: AP and lateral chest radiograph Comparison: 10/26/2016. Clinical Indication: Shortness of breath. A. fib, coarctation of the aorta IMPRESSION Findings/impression: The right-sided ICD is unchanged. Postoperative changes in the mediastinum otherwise grossly similar to prior evaluation. There is mild increase in the pre-existing right pleural effusion with associated right base opacity which could be atelectasis or pneumonia. Stable enlarged cardiac mediastinal silhouette. There is mild to moderate pulmonary vascular congestion, slightly worse. NT-PROBNP (11/09/2016 7:14 PM) Component Value Range NT-ProBNP 763098(H)Comment: 0-353 pg/mL Reference ranges in adults reflect 95th percentiles for NT-pro-BNP levels in patients without congestive heart failure (CHF). Pediatric reference ranges for patients 18 years and younger are from Sarah et al. Pediatr Cardiol 30:3-8, 2008. Age Reference Range (pg/mL) Pediatric (boys and girls): 0-30 days:263 - 6500 1 month-11 months: 37 - 1000 12 months-35 months: 39 -675 3 years to 6 years:23 -327 7 years to 14 years: 10 -242 15 years to 18 years: 6 -207 Adult Males: 19-44 years: 0 -93 45-54 years: 0 - 138 55-64 years: 0 - 177 65-74 years: 0 - 229 75 years or older: 0 - 852 Adult Females: 19-44 years: 0 - 178 45-54 years: 0 - 192 55-64 years: 0 - 226 65-74 years: 0 - 353 75 years or older: 0 - 624 For adult chronic CHF patients according to [place] [employer] ([place]HA) Functional Class for NT-proBNP levels in pg/mL: [id number] Mean percentile percentile Class I: [id number] Class II:[id number] Class III: [id number] Class IV:[id number] Among patients with dyspnea, NT-proBNP is highly sensitive for the detection of acute CHF. In addition, a NT-proBNP < 300 pg/mL effectively rules out acute CHF, with 99% negative predictive value. Elevations in NT-proBNP levels may be observed in states other than left ventricular congestive failure including: acute coronary syndromes, right heart strain/failure (including pulmonary embolism an d cor pulmonale), critical illness, and renal failure. Falsely low NT-proBNP in CHF patients may be observed in increased body mass index. Specimen Blood HEPATIC FUNCTION PANEL (11/09/2016 7:14 PM) Component Value Range Albumin 2.9(L) 3.4-4.8 g/dL ALP 142(H) 35-104 U/L Bilirubin Total 0.7 <=1.2 mg/dL Bilirubin, Direct 0.3(H) 0.0-0.2 mg/dL AST 39(H)Comment: 0-32 U/L Adult reference ranges updated on 10/17/13 at 830am ALT 26Comment: 0-33 U/L The upper limit of normal for alanine aminotransferase (ALT) reference ranges for adults is controversial with some authorities recommending limit as low as 30 U/L for males and 19 U/L for females. Th ere is increased incidence of subclinical liver disease (e.g., early steatohepatitis) in patients with ALT values in the range of 31-41 U/L for males and 20-33 U/L for females. ALT values should alway s be interpreted in conjunction with clinical history, physical examination findings, and, if applicable, data from other diagnostic tests. Total Protein 5.5(L) 6.0-8.0 g/dL Specimen Blood
--- NOTE | 2017-02-02 15:41 | OR ---
Anesthesia Procedure Note - Anesthesia Procedure Note Date of Service: 02/02/17 Narrative: Vital Signs - Last Taken Temp 36.3 C L 11/09/16 12:48 Pulse Resp BP 136/66 11/09/16 16:26 Pulse Ox 02/02/17 15:37 ANESTHESIA PROCEDURE NOTE Date of Procedure: 02/02/2017. Time of procedure: 1400. Performed by: Daniel Barton CRNA Culturist: None. Preprocedure diagnosis: Long-term use of antibiotics. Post procedure diagnosis: Same. Procedure: Ultrasound-guided PICC line insertion. Indications: Is a 66-year-old female who is in need of a PICC central line for antibiotic administration and frequent blood draws. Findings: See below. Details of the procedure: Under ultrasound guidance the right arm cephalic vein was visualized. Skin over the intended target site was cleansed with ChloraPrep. The patient was draped in sterile fashion. The skin over the intended target site was anesthetized with 1% lidocaine. Under direct ultrasound visualization the vein was cannulated with a 22-gauge IV catheter. Dark red blood was noted from the catheter. A 0.45 mm guidewire was inserted through the IV catheter and IV catheter was removed intact. A skin ananya was made at the guidewire insertion site with a scalpel. The 5 English vessel dilator was inserted over the guidewire and the guidewire was removed intact. Dark red blood was noted from the vessel dilator. The PICC line was inserted to a depth of 36 cm and the vessel dilator was peeled away. Dark red blood was noted from the port of the PICC line. PICC line was flushed with sterile normal saline solution. A sterile dressing was then applied over the PICC line insertion site. EBL: Minimal. Fluids: N/A. Specimen: N/A. Post procedure condition: The patient tolerated the procedure well. No complications were noted. Chest x-ray revealed the placement of the PICC line to be approximately 3-4 cm into right atrium. The PICC line was withdrawn 4 cm under sterile procedure and sterile dressings were then reapplied. Thank you for this consultation. Daniel Barton CRNA
== END 2017-02-02 14:03 | disposition home or self-care (01) ==
LOC: SUR 14:02
PROVIDERS: ATTEND Internal Medicine
PROC: 02H633Z Insertion of Infusion Device into Right Atrium, Percutaneous Approach (ICD-10-PCS; principal; 2017-02-02)
DX: Z79.2 Long term (current) use of antibiotics (principal)

== ENCOUNTER 2017-07-15 09:55 | Observation (INO) | payer MEDICARE, BC ==
[2017-07-15 10:50] LABS: Hemoglobin 11.1 gm/dL (12.5-16.0); Mean Cell Volume 112.5 fl (78-100); Mean Corpuscular Hemoglobin 33.7 pg (27-31); Mean Platelet Volume 9.8 fl (6.0-9.5); Neutrophil # 4.2 K/mm3 (1.3-6.0); Neutrophil % 78.2 % (42-75.0); Platelet Count 214 K/mm3 (150-450); Red Blood Count 3.29 M/mm3 (4.2-5.4); Red Cell Distribution Width 16.6 % (11.5-14.0); White Blood Count 5.3 K/mm3 (4.0-10.5)
[2017-07-15 11:13] LABS: ALT 40 U/L (19-67); AST 46 U/L (0-48); Alkaline Phosphatase * 206 U/L (50-170); Anion Gap 24.3 mmol/L (6.8-13.8); BUN/Creatinine Ratio 27.9 (9.0-21.6); Bilirubin, Total 0.5 mg/dL (0.0-1.1); Blood Urea Nitrogen 73 mg/dL (3-23); Ca. Corrected For Albumin 9.5 mg/dL (8.4-10.2); Carbon Dioxide 15.2 mmol/L (24-32.6); Chloride 107 mmol/L (97-106); Glucose * 373 mg/dL (70-110); Potassium 4.5 mmol/L (3.4-4.6); Sodium 142 mmol/L (132-142)
[2017-07-15 12:01] LABS: BNP * Greater than 35000 pg/mL (5-325)
[2017-07-15 12:44] LABS: INR 2.74 INR (0.90-1.10); Prothrombin Time (Patient) 28.5 Seconds (9.4-11.4)
--- NOTE | 2017-07-15 13:00 | OR ---
Anesthesia Procedure Note - Anesthesia Procedure Note Narrative: Vital Signs - Last Taken Temp 36.3 C L 11/09/16 12:48 Pulse Resp BP 136/66 05/20/17 08:31 Pulse Ox 07/15/17 12:59 ANESTHESIA PROCEDURE NOTE Date of procedure: 07/15/2017. Time of procedure: 1250. Performed by: Geo Guadalupe CRNA Histology Aide: None . Preprocedure diagnosis: Difficult IV access. Post procedure diagnosis: Same. Procedure: IV start Indications: Difficult IV access. Findings: 22-gauge Angiocath IV started in the right upper chest. EBL: Minimal. Fluids: N/A. Specimen: N/A. Post procedure condition: The patient tolerated the procedure well. No complications were noted. Thank you for this consultation Geo Guadalupe CRNA
[2017-07-15 13:38] VITALS: BP 111/39
--- NOTE | 2017-07-15 15:04 | HP ---
Chief Complaint - Chief Complaint Date of Service: 07/15/17 Time of Service: 14:59 Chief Complaint: sobx 2-3 days History of Present Illness: patient with multiple medical problems admitted with sob and for possible aspiration of RT pleural effusion which showed up on CXR. Had it aspirated before x 2. however INR at 2.74[ lab obtained after patient admitted]. patient could be d/rossy due to full admission being done. able to lie down flat. - Patient's Past Medical History Patient History - Medical: Diabetes Type 2 Insulin Dependent Patient History - Cardiac/Respiratory: Hypertension, Hyperlipidemia Additional Info: kidney transplant. Patient History - Cancer: Melanoma Patient History - Surgical Procedures: Angioplasty, Cholecystectomy, D & C, Total Knee Replacement, Other, Other Patient History - Other: None - Family History Mother Family History - Medical: , Arthritis, Diabetes Type 2 Family History - Cardiac/Respiratory: Hypertension Father Family History - Medical: Family History - Cardiac/Respiratory: Angina, Coronary Heart Disease, COPD, Myocardial Infarction - Social History Living Situations: spouse Abuse History: No History of abuse Psych History: Hx of Anxiety, Hx of Depression Smoking Status: Former smoker Have you smoked in the past 12 months: No Alcohol Use: none Drug Use: none - Immunizations Immunizations Up to Date: Yes Hx Pneumococcal Vaccination: No History of Influenza Vaccine: Yes Immunizations: IMMUNIZATION HX Immunizations Up to Date Yes History of Influenza Vaccine Yes Hx Pneumococcal Vaccination No Allergies/Adverse Reactions: Allergies Allergy/AdvReac Type Severity Reaction Status Date / Time strawberry [[place]] Allergy Severe Shortness Verified 11/09/16 12:55 of Breath Sulfa (Sulfonamide Allergy Severe can't Verified 11/09/16 12:55 Antibiotics) breathe [Sulfa(Sulfonamide Antibiotics)] Home Medications: HOME MEDICATIONS Mirtazapine [Remeron] 15 mg PO HS #0 tablet 06/07/15 [Last Taken 03/28/16 15 MG] predniSONE [Prednisone] 5 mg PO DAILY #0 tablet 06/07/15 [Last Taken 03/28/16 5 MG] Atorvastatin Calcium [Lipitor] 80 mg PO HS 06/17/16 [Last Taken Unknown] Insulin Glargine,Hum.rec.anlog [Lantus] 10 units SC DAILY 06/17/16 [Last Taken Unknown] Warfarin Sodium [Coumadin] 2 mg PO SUMOWEFRSA@1700 06/17/16 [Last Taken Unknown] Oxycodone HCl/Acetaminophen [Endocet 10-325 mg Tablet] 1 each PO Q6H PRN [Last Taken Unknown] ALPRAZolam [Xanax] 0.25 mg PO TID 10/24/16 [Last Taken Unknown] Allopurinol [Zyloprim (Allopurinol)] 200 mg PO DAILY 10/24/16 [Last Taken Unknown] Aspirin [Aspirin Enteric Coated] 81 mg PO DAILY 10/24/16 [Last Taken Unknown] Nitroglycerin 0.4 mg SL Q5MIN PRN MDD 3 tabs in 15 min. 10/24/16 [Last Taken Unknown] Tacrolimus Anhydrous [Prograf] 1 mg PO BID 10/24/16 [Last Taken Unknown] Warfarin Sodium [Coumadin] 1 mg PO ONCE 10/24/16 [Last Taken Unknown] Acetaminophen [Tylenol] 650 mg PO Q4H PRN 07/15/17 [Last Taken Unknown] Albuterol Sulfate [Albuterol Sulfate 2.5 MG/3 ML] 2.5 mg IH Q4H PRN 07/15/17 [ Last Taken Unknown] Calcitriol 0.25 mcg PO DAILY 07/15/17 [Last Taken Unknown] Cyanocobalamin (Vitamin B-12) [B-12] 1,000 mcg PO DAILY 07/15/17 [Last Taken Unknown] Furosemide [Lasix] 120 mg PO DAILY 07/15/17 [Last Taken Unknown] Insulin Aspart [Novolog] 0 units SC 07/15/17 [Last Taken Unknown] Metoprolol Tartrate [Lopressor] 25 mg PO BID 07/15/17 [Last Taken Unknown] Multivitamin [Multivitamins] 1 each PO DAILY 07/15/17 [Last Taken Unknown] Exam - Exam Vital Signs: Vital Signs - Last Taken Temp 36.6 C 07/15/17 12:33 Pulse 60 07/15/17 12:33 Resp 18 07/15/17 12:33 BP 111/39 07/15/17 12:33 Pulse Ox 94 07/15/17 12:33 Constitutional: Present: Middle aged, Looks Older than stated age - in no resp distress. ENT Exam: Present: hearing grossly normal Eye Exam: bilateral eye: PERRL, EOMI Neck: Present: supple, trachea midline Respiratory: Present: crackles - 1/[address] up RT lung [place]. 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 Eye contact: Present: cooperative, good eye contact, normal speech Diagnostic Studies: Laboratory Tests 07/15/17 11:45 PT 28.5 H INR (Anticoag Therapy) 2.74 H 07/15/17 09:58 WBC 5.3 Hgb 11.1 L Hct 37.0 MCV 112.5 H Plt Count 214 07/15/17 09:58 Plasma Sodium 146 H Potassium 4.5 D Chloride 107 H Carbon Dioxide 15.2 L BUN 73 H D Creatinine 2.62 H D Est GFR (Non-Af Amer) 19 L D Random Glucose 373 H Calcium Adj for Albumin 9.5 Total Bilirubin 0.5 AST 46 ALT 40 Alkaline Phosphatase 206 H B-Natriuretic Peptide >50066 H Total Protein 7.0 07/15/17 Unknown Vitamin B12 Greater than 2000 H Folate Greater than 20.0 Assessment/Plan - Narrative Narrative: 1. RT sided pleural effusion: H/O CHF/ COPD. will require analysis of pl. fluid and CT of chest once tapped. Pt/INR high . will d/c patient. 2. BuN/Cr. elevated. 3. S/P kidney transplant. 4. T2DM. 5. S/P CABG
--- NOTE | 2017-07-15 15:20 | DS ---
(1) History of kidney transplant Problem: Chronic (2) Acute worsening of stage 3 chronic kidney disease Problem: Chronic (3) Pleural effusion, right Problem: Acute (4) CAD (coronary artery disease) Problem: Chronic Qualifiers: Coronary Disease-Associated Artery/Lesion type: [place] artery [place] vs. transplanted heart: [place] heart Associated angina: without angina Qualified Code(s): I25.10 - Atherosclerotic heart disease of [place] coronary artery without angina pectoris (5) S/P kidney transplant Problem: Chronic Description of Stay: DATE OF ADMISSION: 07/15/17. DATE OF DISCHARGE: 07/15/17. DIAGNOSTICS: CXR. DISCHARGE SUMMARY: Mara Pope is a 66-year-old WF with a history of HTN, T2 DM, RT sided pleural effusion which was aspirated before who was admitted on 07/15/2017 due to increasing SOB and using her oxygen more. However her PT/INR was at 2.74 and therefore an aspiration of her pleural effusion could not be done. Patient was given vitamin K 5 mg PO prior to her discharge and arrangements were made for patient with diagnostic and therapeutic thoracentesis to be done on 2016. The patient was discharged in a stable condition. Procedures Performed: none Discharge Disposition: Home self care Disposition: Home self-care Condition: Undetermined Discharge Activity: Activity as tolerated Referrals: Alonso Howard MD [Primary Care Provider] - Additional Patient Instructions (free text): please note warfarin and furosemide have been d/rossy. come on 07/16/17 at 8:30 AM have pt/inr and labs drawn. Complete Home Medications List: Complete Home Medication List: Mirtazapine [Remeron] 15 mg PO HS #0 tablet 06/07/15 predniSONE [Prednisone] 5 mg PO DAILY #0 tablet 06/07/15 Atorvastatin Calcium [Lipitor] 80 mg PO HS 06/17/16 Insulin Glargine,Hum.rec.anlog [Lantus] 10 units SC DAILY 06/17/16 Oxycodone HCl/Acetaminophen [Endocet 10-325 mg Tablet] 1 each PO Q6H PRN ALPRAZolam [Xanax] 0.25 mg PO QID 10/24/16 Allopurinol [Zyloprim] 200 mg PO DAILY 10/24/16 Aspirin [Aspirin Enteric Coated] 81 mg PO DAILY 10/24/16 Nitroglycerin 0.4 mg SL Q5MIN PRN MDD 3 tabs in 15 min. 10/24/16 Tacrolimus Anhydrous [Prograf] 1 mg PO BID 10/24/16 Acetaminophen [Tylenol] 650 mg PO Q4H PRN 07/15/17 Albuterol Sulfate [Albuterol Sulfate 2.5 MG/3 ML] 2.5 mg IH Q4H PRN 07/15/17 Calcitriol 0.25 mcg PO DAILY 07/15/17 Cyanocobalamin (Vitamin B-12) [B-12] 1,000 mcg PO DAILY 07/15/17 Insulin Aspart [Novolog] 0 units SC AC 07/15/17 Metoprolol Tartrate [Lopressor] 25 mg PO BID 07/15/17 Multivitamin [Multivitamins] 1 each PO DAILY 07/15/17 Warfarin Sodium 2 mg PO DAILY 07/16/17 Warfarin Sodium [Coumadin] 1 mg PO DAILY 07/16/17 Amb Orders for Discharge: Comprehensive Metabolic Panel Time Frame: 07/16/17, Location: Determined By Patient Prothrombin Time Time Frame: 1 Day, Location: Determined By Patient
[2017-07-15] MEDS ORDERED: PHYTONADIONE (VIT K1) 5 MG TABLET PO STA (15:21)
== END 2017-07-15 16:52 | disposition home or self-care (01) ==
LOC: LAB 09:55 → MS 11:57
PROVIDERS: ADMIT Internal Medicine; ATTEND Internal Medicine
DX: R06.02 Shortness of breath (principal); J90 Pleural effusion, not elsewhere classified; I12.9 Hypertensive chronic kidney disease with stage 1 through stage 4 chronic kidney disease, or unspecified chronic kidney disease; Z87.891 Personal history of nicotine dependence; E11.9 Type 2 diabetes mellitus without complications; Z79.4 Long term (current) use of insulin; I10 Essential (primary) hypertension; E78.5 Hyperlipidemia, unspecified; Z94.0 Kidney transplant status; I25.10 Atherosclerotic heart disease of native coronary artery without angina pectoris
CPT/HCPCS: 36415; 71020; 80053; 82607; 82746; 83880; 85025; 85610; G0378

== ENCOUNTER 2017-07-16 08:42 | Observation (INO) | payer MEDICARE, BC ==
[2017-07-16 09:22] LABS: Prothrombin Time (Patient) 20.6 Seconds (9.4-11.4)
[2017-07-16 09:23] LABS: INR 1.98 INR (0.90-1.10)
[2017-07-16 09:55] LABS: Albumin * 2.8 gm/dl (3.4-5.0); Anion Gap 17.4 mmol/L (6.8-13.8); Bilirubin, Total 0.4 mg/dL (0.0-1.1); Ca. Corrected For Albumin 9.3 mg/dL (8.4-10.2); Calcium * 8.7 mg/dL (7.9-10.9); Carbon Dioxide 21.2 mmol/L (24-32.6); Potassium 3.6 mmol/L (3.4-4.6); Total Protein 6.6 gm/dL (6.2-8.2)
[2017-07-16] MEDS ORDERED: ONDANSETRON HCL 4 MG TABLET PO PRN (13:12)
--- NOTE | 2017-07-16 13:14 | HP ---
Chief Complaint - Chief Complaint Date of Service: 07/16/17 Time of Service: 13:14 Chief Complaint: dyspnea History of Present Illness: Mara is a 66 year old female patient of Dr. 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 bypass, anemia of chronic disease, and pulmonary HTN who underwent a right thoracentsis due to large right pleural effusion today, in which 1060 ml of serosanguineous pleural fluid was removed. Patient was admitted to the unit after the procedure for observation overnight. Currently resting comfortably in bed, states she is able to breath much better after the procedure. - Patient's Past Medical History Patient History - Medical: Diabetes Type 2 Insulin Dependent, Osteoarthritis Patient History - Cardiac/Respiratory: Atrial Fibrillation, CHF, Hypertension, Hyperlipidemia, Other Patient History - Cancer: Melanoma Patient History - Surgical Procedures: Angioplasty, Cataracts, Cholecystectomy, Coronary Bypass Surgery, Cardiac stent, D & C, Hysterectomy, Total Knee Replacement, Other, Other, Orthopedic, Urology Patient History - Other: None - Family History Mother Family History - Medical: , Arthritis, Diabetes Type 2 Family History - Cardiac/Respiratory: Hypertension Father Family History - Medical: Family History - Cardiac/Respiratory: Angina, Coronary Heart Disease, COPD, Myocardial Infarction - Social History Living Situations: spouse Abuse History: No History of abuse Psych History: Hx of Anxiety, Hx of Depression Smoking Status: Former smoker Have you smoked in the past 12 months: No Alcohol Use: none Drug Use: none - Immunizations Immunizations Up to Date: Yes Hx Pneumococcal Vaccination: No History of Influenza Vaccine: Yes Review Of Systems (GEN) - Review of Systems Generalized/Overall Review: Present: No Symptoms Reported EENTM: Present: No Symptoms Reported Respiratory: Present: No Symptoms Reported Cardiac: Present: No Symptoms Reported Abdominal: Present: No Symptoms Reported Genitourinary: Present: No Symptoms Reported Musculoskeletal: Present: Muscle Pain Neurological: Present: No Symptoms Reported Skin: Present: No Symptoms Reported Endocrine: Present: No Symptoms Reported Misc: All systems neg except as marked Immunizations: IMMUNIZATION HX Immunizations Up to Date Yes History of Influenza Vaccine Yes Hx Pneumococcal Vaccination No Allergies/Adverse Reactions: Allergies Allergy/AdvReac Type Severity Reaction Status Date / Time strawberry [[place]] Allergy Severe Shortness Verified 07/16/17 13:08 of Breath Sulfa (Sulfonamide Allergy Severe can't Verified 07/16/17 13:08 Antibiotics) breathe [Sulfa(Sulfonamide Antibiotics)] Home Medications: HOME MEDICATIONS Mirtazapine [Remeron] 15 mg PO HS #0 tablet 06/07/15 [Last Taken 03/28/16 15 MG] predniSONE [Prednisone] 5 mg PO DAILY #0 tablet 06/07/15 [Last Taken 03/28/16 5 MG] Atorvastatin Calcium [Lipitor] 80 mg PO HS 06/17/16 [Last Taken Unknown] Insulin Glargine,Hum.rec.anlog [Lantus] 10 units SC DAILY 06/17/16 [Last Taken Unknown] Oxycodone HCl/Acetaminophen [Endocet 10-325 mg Tablet] 1 each PO Q6H PRN [Last Taken Unknown] ALPRAZolam [Xanax] 0.25 mg PO QID 10/24/16 [Last Taken Unknown] Allopurinol [Zyloprim] 200 mg PO DAILY 10/24/16 [Last Taken Unknown] Aspirin [Aspirin Enteric Coated] 81 mg PO DAILY 10/24/16 [Last Taken Unknown] Nitroglycerin 0.4 mg SL Q5MIN PRN MDD 3 tabs in 15 min. 10/24/16 [Last Taken Unknown] Tacrolimus Anhydrous [Prograf] 1 mg PO BID 10/24/16 [Last Taken Unknown] Acetaminophen [Tylenol] 650 mg PO Q4H PRN 07/15/17 [Last Taken Unknown] Albuterol Sulfate [Albuterol Sulfate 2.5 MG/3 ML] 2.5 mg IH Q4H PRN 07/15/17 [ Last Taken Unknown] Calcitriol 0.25 mcg PO DAILY 07/15/17 [Last Taken Unknown] Cyanocobalamin (Vitamin B-12) [B-12] 1,000 mcg PO DAILY 07/15/17 [Last Taken Unknown] Insulin Aspart [Novolog] 0 units SC AC 07/15/17 [Last Taken Unknown] Metoprolol Tartrate [Lopressor] 25 mg PO BID 07/15/17 [Last Taken Unknown] Multivitamin [Multivitamins] 1 each PO DAILY 07/15/17 [Last Taken Unknown] Warfarin Sodium 2 mg PO DAILY 07/16/17 [Last Taken Unknown] Warfarin Sodium [Coumadin] 1 mg PO DAILY 07/16/17 [Last Taken Unknown] Exam - Exam Vital Signs: Vital Signs - Last Taken Temp 36.7 C 07/16/17 10:46 Pulse 58 L 07/16/17 10:46 Resp 18 07/16/17 10:46 BP 107/47 07/16/17 10:46 Pulse Ox 96 07/16/17 10:46 Constitutional: Present: Alert, Cooperative, No distress ENT Exam: Present: hearing grossly normal Eye Exam: bilateral eye: normal inspection Neck: Present: full range of motion, supple Breasts: Present: Exam deferred Respiratory: Present: decreased breath sounds - bases, otherwise normal throughout Cardiovascular/Chest: Present: normal peripheral pulses, regular rate, rhythm Peripheral Pulses: carotid (R): 2+, carotid (L): 2+, dorsalis-pedis (R): 2+, dorsalis-pedis (L): 2+ Abdomen: Present: soft, nontender, nondistended, other - transplanted kidney in the RLQ, non tender to touch /Rectal: Present: Exam deferred Extremity: Present: non-tender, normal inspection Skin Exam: Present: warm/dry, no cyanosis, other - bilat arms with multiple bruises Diagnostic Studies: Abnormal Lab Results 07/16/17 07/16/17 Range/Units 08:45 08:52 PT 20.6 H (9.4-11.4) Seconds INR (Anticoag Therapy) 1.98 H (0.90-1.10) INR Sodium 144 H (132-142) mmol/L Plasma Sodium 146 H (130-142) mmol/L Chloride 109 H (97-106) mmol/L Carbon Dioxide 21.2 L (24-32.6) mmol/L Anion Gap 17.4 H (6.8-13.8) mmol/L BUN 72 H (3-23) mg/dL Creatinine 2.67 H (0.4-1.4) mg/dL Est GFR (Non-Af Amer) 19 L (60-130) mL/min BUN/Creatinine Ratio 27.0 H (9.0-21.6) Random Glucose 196 H D (70-110) mg/dL Alkaline Phosphatase 194 H (50-170) U/L Albumin 2.8 L (3.4-5.0) gm/dl Laboratory Results PT 20.6 Seconds (9.4-11.4) H 07/16/17 08:45 INR (Anticoag Therapy) 1.98 INR (0.90-1.10) H 07/16/17 08:45 Sodium 144 mmol/L (132-142) H 07/16/17 08:52 Plasma Sodium 146 mmol/L (130-142) H 07/16/17 08:52 Potassium 3.6 mmol/L (3.4-4.6) 07/16/17 08:52 Chloride 109 mmol/L (97-106) H 07/16/17 08:52 Carbon Dioxide 21.2 mmol/L (24-32.6) L 07/16/17 08:52 Anion Gap 17.4 mmol/L (6.8-13.8) H 07/16/17 08:52 BUN 72 mg/dL (3-23) H 07/16/17 08:52 Creatinine 2.67 mg/dL (0.4-1.4) H 07/16/17 08:52 Est GFR (Non-Af Amer) 19 mL/min (60-130) L 07/16/17 08:52 BUN/Creatinine Ratio 27.0 (9.0-21.6) H 07/16/17 08:52 Random Glucose 196 mg/dL (70-110) H D 07/16/17 08:52 Calcium 8.7 mg/dL (7.9-10.9) 07/16/17 08:52 Calcium Adj for Albumin 9.3 mg/dL (8.4-10.2) 07/16/17 08:52 Total Bilirubin 0.4 mg/dL (0.0-1.1) 07/16/17 08:52 AST 32 U/L (0-48) 07/16/17 08:52 ALT 36 U/L (19-67) 07/16/17 08:52 Alkaline Phosphatase 194 U/L (50-170) H 07/16/17 08:52 Total Protein 6.6 gm/dL (6.2-8.2) 07/16/17 08:52 Albumin 2.8 gm/dl (3.4-5.0) L 07/16/17 08:52 Assessment/Plan - Narrative Narrative: Right pleural effusion / status post thoracentsis - check chest xray 2 and 4 hours post op since INR elevated yesterday - bedrest until xrays are done then activity as tolerated. - post op vital signs - watch surgical dressing closely for bleeding giving elevated INR yesterday - percocet for postop pain management - send pleural fluid for lab analysis. - exudative vs transudative - recheck labs in am. afib, - chronic - hold coumadin due to recent procedure - monitor on tele HTN - vitals signs q 4 hours after post op vitals signs are done. Combined systolic and diastolic CHF / pulmonary HTN - watch fluid status closely - strict I&Os - daily weights Code status: Full Code VTE: early ambulation GI Proph: pepcid - Assessment/Plan (1) Pleural effusion, right Problem: Acute (2) S/P thoracentesis Problem: Acute (3) Stage 4 chronic kidney disease Problem: Chronic (4) History of kidney transplant Problem: Chronic (5) CAD (coronary artery disease) Problem: Chronic Qualifiers: Coronary Disease-Associated Artery/Lesion type: [place] artery [place] vs. transplanted heart: [place] heart Associated angina: without angina Qualified Code(s): I25.10 - Atherosclerotic heart disease of [place] coronary artery without angina pectoris (6) Atrial fibrillation Problem: Chronic Qualifiers: Atrial fibrillation type: chronic Qualified Code(s): I48.2 - Chronic atrial fibrillation (7) CHF (congestive heart failure) Problem: Chronic Qualifiers: Congestive heart failure type: combined Congestive heart failure chronicity : chronic Qualified Code(s): I50.42 - Chronic combined systolic (congestive) and diastolic (congestive) heart failure (8) Chronic anticoagulation Problem: Chronic (9) Diabetes mellitus Problem: Chronic Qualifiers: Diabetes mellitus type: type 2 Diabetes mellitus complication status: with kidney complications Diabetes mellitus complication detail: with chronic kidney disease Diabetes mellitus intermediate manager insulin use: without intermediate manager use Chronic kidney disease stage: stage 4 (severe) Qualified Code(s): E11.22 - Type 2 diabetes mellitus with diabetic chronic kidney disease; N18.4 - Chronic kidney disease, stage 4 (severe) (10) HTN (hypertension) Problem: Chronic Qualifiers: Hypertension type: essential hypertension Qualified Code(s): I10 - Essential (primary) hypertension
[2017-07-16] MEDS: INSULIN LISPRO 100 UNITS/ML VIAL SC SCH ×2 (13:32→16:40)
[2017-07-16] MEDS: oxyCODONE HCL/ACETAMINOPHEN 1 TAB TABLET PO PRN ×2 (13:33→19:15)
[2017-07-16 13:40] LABS: Pleural Fluid Uric Acid 4.2 mg/dL
[2017-07-16 14:47] LABS: Body Fluid Appearance CLOUDY (CLEAR); Body Fluid Color AMBER (COLORLESS); Body Fluid WBC 71 /uL (0-1000)
[2017-07-16] MEDS ORDERED: ACETAMINOPHEN 325 MG TABLET PO PRN (14:47)
[2017-07-16] MEDS ORDERED: ALBUTEROL SULFATE 2.5 MG/0.5 ML VIAL.NEB IH PRN (14:47)
[2017-07-16] MEDS: ALPRAZolam 0.25 MG TABLET PO SCH ×2 (16:38→20:47)
[2017-07-16] MEDS: TACROLIMUS ANHYDROUS 0.5 MG CAPSULE PO SCH (17:31)
[2017-07-16] MEDS: METOPROLOL TARTRATE 25 MG TABLET PO SCH (20:47)
[2017-07-16] MEDS ORDERED: MIRTAZAPINE 15 MG TABLET PO SCH (21:00)
[2017-07-16] MEDS ORDERED: ROSUVASTATIN CALCIUM 20 MG TABLET PO SCH (21:00)
[2017-07-17 05:19] LABS: Prothrombin Time (Patient) 13.4 Seconds (9.4-11.4)
[2017-07-17 05:29] LABS: Anion Gap 16.6 mmol/L (6.8-13.8); BUN/Creatinine Ratio 23.6 (9.0-21.6); Calcium * 8.8 mg/dL (7.9-10.9); Carbon Dioxide 20.9 mmol/L (24-32.6); Estimated Creat Clear 9.3; Potassium 4.5 mmol/L (3.4-4.6)
[2017-07-17] MEDS: TACROLIMUS ANHYDROUS 0.5 MG CAPSULE PO SCH (05:35)
[2017-07-17 05:36] LABS: INR 1.29 INR (0.90-1.10)
[2017-07-17] MEDS: oxyCODONE HCL/ACETAMINOPHEN 1 TAB TABLET PO PRN (07:02)
[2017-07-17] MEDS: INSULIN LISPRO 100 UNITS/ML VIAL SC SCH ×2 (07:07→12:01)
[2017-07-17] MEDS: METOPROLOL TARTRATE 25 MG TABLET PO SCH (08:43)
[2017-07-17] MEDS: ALPRAZolam 0.25 MG TABLET PO SCH ×3 (08:48→17:03)
[2017-07-17] MEDS ORDERED: ASPIRIN 81 MG TABLET.DR PO SCH (09:00)
[2017-07-17] MEDS ORDERED: CYANOCOBALAMIN 1,000 MCG TABLET PO SCH (09:00)
[2017-07-17] MEDS ORDERED: CALCITRIOL 0.25 MCG CAPSULE PO SCH (09:00)
[2017-07-17] MEDS ORDERED: MULTIVITAMINS 1 CAP CAPSULE PO SCH (09:00)
[2017-07-17] MEDS ORDERED: ALLOPURINOL 100 MG TABLET PO SCH (09:00)
[2017-07-17] MEDS ORDERED: INSULIN GLARGINE,HUM.REC.ANLOG 100 UNITS/ML VIAL SC SCH (09:00)
[2017-07-17] MEDS ORDERED: predniSONE 5 MG TABLET PO SCH (09:00)
[2017-07-17 11:41] VITALS: BP 103/54
--- NOTE | 2017-07-17 13:20 | DS ---
(1) Pleural effusion, right Problem: Acute (2) S/P thoracentesis Problem: Acute (3) Stage 4 chronic kidney disease Problem: Chronic (4) History of kidney transplant Problem: Chronic (5) CAD (coronary artery disease) Problem: Chronic Qualifiers: Coronary Disease-Associated Artery/Lesion type: [place] artery [place] vs. transplanted heart: [place] heart Associated angina: without angina Qualified Code(s): I25.10 - Atherosclerotic heart disease of [place] coronary artery without angina pectoris (6) Atrial fibrillation Problem: Chronic Qualifiers: Atrial fibrillation type: chronic Qualified Code(s): I48.2 - Chronic atrial fibrillation (7) CHF (congestive heart failure) Problem: Chronic Qualifiers: Congestive heart failure type: combined Congestive heart failure chronicity : chronic Qualified Code(s): I50.42 - Chronic combined systolic (congestive) and diastolic (congestive) heart failure (8) Chronic anticoagulation Problem: Chronic (9) Diabetes mellitus Problem: Chronic Qualifiers: Diabetes mellitus type: type 2 Diabetes mellitus complication status: with kidney complications Diabetes mellitus complication detail: with chronic kidney disease Diabetes mellitus termite helper insulin use: without assisted use Chronic kidney disease stage: stage 4 (severe) Qualified Code(s): E11.22 - Type 2 diabetes mellitus with diabetic chronic kidney disease; N18.4 - Chronic kidney disease, stage 4 (severe) (10) HTN (hypertension) Problem: Chronic Qualifiers: Hypertension type: essential hypertension Qualified Code(s): I10 - Essential (primary) hypertension Description of Stay: Date of Admission: 07/16/17 Date of Discharge: 07/17/17 Procedure: Right thoracentsis 07/16/17, 1060 mL of serosanguineous pleural fluid was removed. Description of Stay: Mara is a 66 year old female patient of Dr. 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 bypass, anemia of chronic disease, and pulmonary HTN who underwent a right thoracentsis due to large right pleural effusion today, in which 1060 ml of serosanguineous pleural fluid was removed. Patient was admitted to the unit after the procedure for observation overnight. Currently resting comfortably in bed, states she is able to breath much better after the procedure. Chest xrays were done immediately post op, 2 hours, 4 hours and the morning after the procedure and showed no significant change. The patient developed no significant complications from the thoracentsis and was discharged on 07/17/17. Procedures Performed: see notes below Discharge Disposition: Home self care Disposition: Home self-care Condition: Undetermined Discharge Activity: Activity as tolerated Discharge Diet: General/regular food Referrals: Alonso Howard MD [Primary Care Provider] - Problem Oriented Discharge Instructions to Patient/Family: Thoracentesis, Care After, Pleural Effusion Additional Patient Instructions (free text): Follow up with PCP in 1 week. Make appointment with [facility] pulomonolgy for follow up within 2 weeks. Continue same home medications. Complete Home Medications List: Complete Home Medication List: Mirtazapine [Remeron] 15 mg PO HS #0 tablet 06/07/15 predniSONE [Prednisone] 5 mg PO DAILY #0 tablet 06/07/15 Atorvastatin Calcium [Lipitor] 80 mg PO HS 06/17/16 Insulin Glargine,Hum.rec.anlog [Lantus] 10 units SC DAILY 06/17/16 Oxycodone HCl/Acetaminophen [Endocet 10-325 mg Tablet] 1 each PO Q6H PRN ALPRAZolam [Xanax] 0.25 mg PO QID 10/24/16 Allopurinol [Zyloprim] 200 mg PO DAILY 10/24/16 Aspirin [Aspirin Enteric Coated] 81 mg PO DAILY 10/24/16 Nitroglycerin 0.4 mg SL Q5MIN PRN MDD 3 tabs in 15 min. 10/24/16 Tacrolimus Anhydrous [Prograf] 1 mg PO BID 10/24/16 Acetaminophen [Tylenol] 650 mg PO Q4H PRN 07/15/17 Albuterol Sulfate [Albuterol Sulfate 2.5 MG/3 ML] 2.5 mg IH Q4H PRN 07/15/17 Calcitriol 0.25 mcg PO DAILY 07/15/17 Cyanocobalamin (Vitamin B-12) [B-12] 1,000 mcg PO DAILY 07/15/17 Insulin Aspart [Novolog] 0 units SC AC 07/15/17 Metoprolol Tartrate [Lopressor] 25 mg PO BID 07/15/17 Multivitamin [Multivitamins] 1 each PO DAILY 07/15/17 Warfarin Sodium 2 mg PO DAILY 07/16/17 Warfarin Sodium [Coumadin] 1 mg PO DAILY 07/16/17
== END 2017-07-17 19:05 | disposition home or self-care (01) ==
LOC: LAB 08:42 → MS 10:19
PROVIDERS: ADMIT Internal Medicine; ATTEND Internal Medicine
PROC: 0W993ZZ Drainage of Right Pleural Cavity, Percutaneous Approach (ICD-10-PCS; principal; 2017-07-16)
DX: J90 Pleural effusion, not elsewhere classified (principal); E11.22 Type 2 diabetes mellitus with diabetic chronic kidney disease; N18.4 Chronic kidney disease, stage 4 (severe); I48.2 Chronic atrial fibrillation; I50.42 Chronic combined systolic (congestive) and diastolic (congestive) heart failure; I12.9 Hypertensive chronic kidney disease with stage 1 through stage 4 chronic kidney disease, or unspecified chronic kidney disease; D63.1 Anemia in chronic kidney disease; I27.2 Other secondary pulmonary hypertension; Z94.0 Kidney transplant status; Z79.01 Long term (current) use of anticoagulants; Z68.28 Body mass index [BMI] 28.0-28.9, adult; Z87.891 Personal history of nicotine dependence; Z95.1 Presence of aortocoronary bypass graft
CPT/HCPCS: 32555; 36415; 71010; 71020; 76942; 80048; 80053; 82042; 82150; 82465; 82945; 83615; 83986; 84157; 84478; 84560; 85610; 87070; 87081; 87205; 88108; 88305; 89051; 96372; G0378; G0379

== ENCOUNTER 2017-08-04 12:07 | Inpatient (IN) | payer MEDICARE, BC ==
[2017-08-04 13:35] LABS: Hematocrit 42.2 % (37.0-47.0); Hemoglobin 12.9 gm/dL (12.5-16.0); Mean Cell Volume 109.6 fl (78-100); Mean Corpuscular Hemoglobin 33.5 pg (27-31); Mean Corpuscular Hgb Conc 30.6 g/dl (32-36); Mean Platelet Volume 10.1 fl (6.0-9.5); Neutrophil # 5.8 K/mm3 (1.3-6.0); Neutrophil % 79.6 % (42-75.0); Platelet Count 206 K/mm3 (150-450); Red Blood Count 3.85 M/mm3 (4.2-5.4); Red Cell Distribution Width 17.1 % (11.5-14.0); White Blood Count 7.2 K/mm3 (4.0-10.5)
[2017-08-04 13:56] LABS: Albumin * 3.1 gm/dl (3.4-5.0); Anion Gap 19.2 mmol/L (6.8-13.8); BUN/Creatinine Ratio 27.5 (9.0-21.6); Bilirubin, Total 0.8 mg/dL (0.0-1.1); Calcium * 9.6 mg/dL (7.9-10.9); Carbon Dioxide 18.8 mmol/L (24-32.6); Total Protein 7.1 gm/dL (6.2-8.2)
[2017-08-04 14:10] LABS: Urine Bilirubin Negative (NEGATIVE); Urine Ketone Negative (NEGATIVE); Urine Nitrite Negative (NEGATIVE); Urine Protein 15 mg/dL (NEGATIVE); Urine Urobilinogen Normal (NORMAL); Urine pH 5.5 pH (5.0-7.0)
--- NOTE | 2017-08-04 14:16 | ERNOTE ---
Dizziness ER Record Presenting Symptoms: dizziness, weakness Time Seen by Provider: 08/04/17 12:11 Exam Limitations: no limitations Immunizations: IMMUNIZATION HX Immunizations Up to Date Yes History of Influenza Vaccine Yes Hx Pneumococcal Vaccination Yes Allergies/Adverse Reactions: Allergies Allergy/AdvReac Type Severity Reaction Status Date / Time strawberry [[place]] Allergy Severe Shortness Verified 08/04/17 12:23 of Breath Sulfa (Sulfonamide Allergy Severe can't Verified 08/04/17 12:23 Antibiotics) breathe [Sulfa(Sulfonamide Antibiotics)] Home Medications: HOME MEDICATIONS Mirtazapine [Remeron] 15 mg PO HS #0 tablet 06/07/15 [Last Taken 03/28/16 15 MG] predniSONE [Prednisone] 5 mg PO DAILY #0 tablet 06/07/15 [Last Taken 03/28/16 5 MG] Atorvastatin Calcium [Lipitor] 80 mg PO HS 06/17/16 [Last Taken Unknown] Insulin Glargine,Hum.rec.anlog [Lantus] 10 units SC DAILY 06/17/16 [Last Taken Unknown] Oxycodone HCl/Acetaminophen [Endocet 10-325 mg Tablet] 1 each PO Q6H PRN [Last Taken Unknown] ALPRAZolam [Xanax] 0.25 mg PO QID 10/24/16 [Last Taken Unknown] Allopurinol [Zyloprim] 200 mg PO DAILY 10/24/16 [Last Taken Unknown] Aspirin [Aspirin Enteric Coated] 81 mg PO DAILY 10/24/16 [Last Taken Unknown] Nitroglycerin 0.4 mg SL Q5MIN PRN MDD 3 tabs in 15 min. 10/24/16 [Last Taken Unknown] Tacrolimus Anhydrous [Prograf] 1 mg PO BID 10/24/16 [Last Taken Unknown] Acetaminophen [Tylenol] 650 mg PO Q4H PRN 07/15/17 [Last Taken Unknown] Albuterol Sulfate [Albuterol Sulfate 2.5 MG/3 ML] 2.5 mg IH Q4H PRN 07/15/17 [ Last Taken Unknown] Calcitriol 0.25 mcg PO DAILY 07/15/17 [Last Taken Unknown] Cyanocobalamin (Vitamin B-12) [B-12] 1,000 mcg PO DAILY 07/15/17 [Last Taken Unknown] Insulin Aspart [Novolog] 0 units SC AC 07/15/17 [Last Taken Unknown] Metoprolol Tartrate [Lopressor] 25 mg PO BID 07/15/17 [Last Taken Unknown] Multivitamin [Multivitamins] 1 each PO DAILY 07/15/17 [Last Taken Unknown] Warfarin Sodium 2 mg PO DAILY 07/16/17 [Last Taken Unknown] Warfarin Sodium [Coumadin] 1 mg PO DAILY 07/16/17 [Last Taken Unknown] - History of Present Illness Narrative: Patient presents to the emergency room for progressive weakness. According the patient's autocad technician patient is unable to walk up her stairs to her house. She is dizzy she feels very weak and she is short of breath. She has a history of coronary artery disease and congestive heart failure and she states that she is unable to carry on at home. She absolutely denies any chest pains or nausea or vomiting Review of Systems - Review of Systems Constitutional: Present: weakness, fatigue, malaise, weight loss EYE: Absent: eye pain, eye discharge ENT: Absent: ear pain, ear discharge, sore throat, throat swelling Respiratory: Present: shortness of breath, orthopnea Cardiology: Absent: chest pain, palpitations, syncope Musculoskeletal: Present: no symptoms reported - Patient's Past Medical History Patient History - Medical: Diabetes Type 2 Insulin Dependent, Osteoarthritis Patient History - Cardiac/Respiratory: Atrial Fibrillation, CHF, Hypertension, Hyperlipidemia, Other Patient History - Cancer: Melanoma Patient History - Surgical Procedures: Angioplasty, Cataracts, Cholecystectomy, Coronary Bypass Surgery, Cardiac stent, D & C, Hysterectomy, Total Knee Replacement, Other, Other, Orthopedic, Urology Patient History - Other: None LMP (females 10-50): post men - Family History Mother Family History - Medical: , Arthritis, Diabetes Type 2 Family History - Cardiac/Respiratory: Hypertension Father Family History - Medical: Family History - Cardiac/Respiratory: Angina, Coronary Heart Disease, COPD, Myocardial Infarction - Social History Living Situations: home Abuse History: No History of abuse Psych History: Hx of Anxiety, Hx of Depression Smoking Status: Former smoker Alcohol Use: none Drug Use: none - Immunizations Immunizations Up to Date: Yes Hx Pneumococcal Vaccination: Yes History of Influenza Vaccine: Yes Physical Exam - Physical Exam General Appearance: Present: other - patient appears pale and thin emaciated and is having a difficult time breathing when she lays down when she sits up she has oxygen per nasal cannula and she is able to breathe much better. Head Exam: Present: normal inspection, no evidence of injury Ears, Nose, Throat: Present: normal ENT inspection Neck: Present: normal inspection, nontender Respiratory: Present: no respiratory distress, accessory muscle use, other - patient has decreased bibasal breath sounds Cardiovascular/Chest: Present: regular rate, rhythm, no murmur, normal peripheral pulses Gastrointestinal/Abdominal: Present: normal bowel sounds, nontender, nondistended, soft, no organomegaly Extremity Exam: Present: normal inspection, normal range of motion - no edema noted Neurological Exam: Present: alert, oriented, normal mood/affect ED Progress - Results and Orders Patient's Lab Results:: I have reviewed the patient's lab results. - Vital Signs Patient's Vital Signs:: I have reviewed the patient's vital signs. Vital Signs: Vital Signs 08/04/17 08/04/17 12:14 13:52 Temperature 36.5 C Pulse Rate 87 90 Respiratory 20 20 Rate Blood Pressure 140/81 167/83 O2 Sat by Pulse 100 100 Oximetry - EKG EKG read: Interp. by me - patient has a pacemaker her EKG is low amplitude, while the EKG machine reads this as STEMI this was run by Dr. cason at [facility] and Dr. Guadarrama at [facility]. and all 3 of us agree that this is not a true STEMI. - X-Ray X-Ray #1 X-Ray: chest - Progress/Reassessment Chief Complaint: Dizziness Plan - Plan Plan: This patient's primary complaint was extremely weakness to the point where she cannot carry on at home and occasional dizziness. CT of the head was read as negative by this examiner. EKG while it showed a STEMI on the machine it was disputed by 3 licensed physicians. Patient's troponin is elevated at 0.208 this is most probably due to her congestive heart failure as her BNP is greater than 24,000. At this time Dr. Michael was consult in regards to this patient and patient will be admitted for weakness and CHF. Departure Clinical Impression: Congestive heart failure Qualifiers: Congestive heart failure type: unspecified congestive heart failure type Congestive heart failure chronicity: chronic Qualified Code(s): I50.9 - Heart failure, unspecified Fatigue Qualifiers: Fatigue type: unspecified Qualified Code(s): R53.83 - Other fatigue - Departure Disposition: [facility] Condition: Fair Referrals: Alonso Howard MD [Primary Care Provider] -
[2017-08-04 14:25] LABS: Urine Appearance Slightly Cloudy; Urine Bacteria TRACE; Urine Blood 5 /ul (NEGATIVE); Urine Color Dark Yellow; Urine RBC None Seen /hpf (0-5)
[2017-08-04] MEDS ORDERED: ASPIRIN 81 MG TAB.CHEW ONE (14:31)
[2017-08-04] MEDS ORDERED: CLOPIDOGREL BISULFATE 75 MG TABLET ONE (14:32)
[2017-08-04] MEDS ORDERED: ASPIRIN 81 MG TAB.CHEW PO ONE ×2 (14:33→14:37)
[2017-08-04] MEDS ORDERED: CLOPIDOGREL BISULFATE 75 MG TABLET PO ONE (14:33)
--- NOTE | 2017-08-04 15:01 | OR ---
Anesthesia Procedure Note - Anesthesia Procedure Note Narrative: Vital Signs - Last Taken Temp 36.5 C 08/04/17 12:14 Pulse 101 H 08/04/17 14:43 Resp 29 H 08/04/17 14:43 BP 119/79 08/04/17 14:43 Pulse Ox 100 08/04/17 14:43 O2 Oxygen Delivery Method Nasal Cannula 08/04/17 15:00 ANESTHESIA PROCEDURE NOTE Date of procedure: 08/04/2017. Time of procedure: 1450. Performed by: Geo Guadalupe CRNA Cadmium Burner: None . Preprocedure diagnosis: Shortness of breath. Difficult IV access.. Post procedure diagnosis: Same. Procedure: IV start Indications: Difficult IV access. Findings: 22-gauge Angiocath IV started in patient's right upper chest. EBL: Minimal. Fluids: N/A. Specimen: N/A. Post procedure condition: The patient tolerated the procedure well. No complications were noted. Thank you for this consultation Geo Guadalupe CRNA
[2017-08-05] MEDS ORDERED: NITROGLYCERIN 0.4 MG/TAB BTL SL PRN (02:14)
[2017-08-05] MEDS ORDERED: ALBUTEROL SULFATE 2.5 MG/3 ML VIAL.NEB IH PRN (02:30)
[2017-08-05] MEDS ORDERED: ACETAMINOPHEN 325 MG TABLET PO PRN (02:38)
[2017-08-05] MEDS: ALPRAZolam 0.25 MG TABLET PO SCH ×5 (02:39→20:48)
--- NOTE | 2017-08-05 03:01 | HP ---
Chief Complaint - Chief Complaint Date of Service: 08/04/17 Time of Service: 22:00 Chief Complaint: weakness, dizziness, shortness of breath. History of Present Illness: 66 years old female adm to the hospital with reports of weakness,dizziness and shortness of breath, her was concern and brought her to the ER. pt stated 3 weeks ago she had thoracentesis done due to recurring pleural effusion.PMH of CAD (s/p 2v CABG in 2011), CKD stage 4 (s/p right renal transplant in 2012), chronic afib on coumadin, combination systolic and diastolic heart failure, DM T2, coartation of the aorta (distal to the subclavian artery) axillary fem. bypass, anemia of chronic disease, and pulmonary HTN. Today pt report shortness of breath, orthopnea. she denies cough , chills, fever, chest pain and palpitation.She was last seen by teacher kindergarten at [facility] she was taken off Lasix and instructed not to take until instructed to resume it. In ER CXR: consolidation involved the majority of the right hemithorax with small amount of aerated lungs in the apex , this suggest a roberto enlarge pleural effusion. On adm Troponin 0.0203------> 0.179 - Patient's Past Medical History Patient History - Medical: Diabetes Type 2 Insulin Dependent, Osteoarthritis Patient History - Cardiac/Respiratory: Atrial Fibrillation - on coumadin, CHF, Hypertension, Hyperlipidemia, Other Patient History - Cancer: Melanoma Patient History - Surgical Procedures: Angioplasty, Cataracts, Cholecystectomy, Coronary Bypass Surgery, Cardiac stent, D & C, Hysterectomy, Total Knee Replacement, Other, Other, Orthopedic, Urology Patient History - Other: None LMP (females 10-50): post men - Family History Mother Family History - Medical: , Arthritis, Diabetes Type 2 Family History - Cardiac/Respiratory: Hypertension Father Family History - Medical: Family History - Cardiac/Respiratory: Angina, Coronary Heart Disease, COPD, Myocardial Infarction - Social History Living Situations: spouse Abuse History: No History of abuse Psych History: Hx of Anxiety, Hx of Depression Smoking Status: Former smoker Have you smoked in the past 12 months: No Alcohol Use: none Drug Use: none - Immunizations Immunizations Up to Date: Yes Hx Pneumococcal Vaccination: Yes History of Influenza Vaccine: Yes Review Of Systems (GEN) - Review of Systems Generalized/Overall Review: Present: Weakness, Fatigue Respiratory: Present: No Symptoms Reported Cardiac: Present: No Symptoms Reported Abdominal: Present: No Symptoms Reported Genitourinary: Present: No Symptoms Reported Musculoskeletal: Present: No Symptoms Reported Neurological: Present: No Symptoms Reported Immunizations: IMMUNIZATION HX Immunizations Up to Date Yes History of Influenza Vaccine Yes Hx Pneumococcal Vaccination Yes Allergies/Adverse Reactions: Allergies Allergy/AdvReac Type Severity Reaction Status Date / Time strawberry [[place]] Allergy Severe Shortness Verified 08/04/17 12:23 of Breath Sulfa (Sulfonamide Allergy Severe can't Verified 08/04/17 12:23 Antibiotics) breathe [Sulfa(Sulfonamide Antibiotics)] Home Medications: HOME MEDICATIONS Mirtazapine [Remeron] 15 mg PO HS #0 tablet 06/07/15 [Last Taken 03/28/16 15 MG] predniSONE [Prednisone] 5 mg PO DAILY #0 tablet 06/07/15 [Last Taken 03/28/16 5 MG] Atorvastatin Calcium [Lipitor] 80 mg PO HS 06/17/16 [Last Taken Unknown] Insulin Glargine,Hum.rec.anlog [Lantus] 10 units SC DAILY 06/17/16 [Last Taken Unknown] Oxycodone HCl/Acetaminophen [Endocet 10-325 mg Tablet] 1 each PO Q6H PRN [Last Taken Unknown] ALPRAZolam [Xanax] 0.25 mg PO QID 10/24/16 [Last Taken Unknown] Allopurinol [Zyloprim] 200 mg PO DAILY 10/24/16 [Last Taken Unknown] Aspirin [Aspirin Enteric Coated] 81 mg PO DAILY 10/24/16 [Last Taken Unknown] Nitroglycerin 0.4 mg SL Q5MIN PRN MDD 3 tabs in 15 min. 10/24/16 [Last Taken Unknown] Tacrolimus Anhydrous [Prograf] 1 mg PO BID 10/24/16 [Last Taken Unknown] Acetaminophen [Tylenol] 650 mg PO Q4H PRN 07/15/17 [Last Taken Unknown] Albuterol Sulfate [Albuterol Sulfate 2.5 MG/3 ML] 2.5 mg IH Q4H PRN 07/15/17 [ Last Taken Unknown] Calcitriol 0.25 mcg PO DAILY 07/15/17 [Last Taken Unknown] Cyanocobalamin (Vitamin B-12) [B-12] 1,000 mcg PO DAILY 07/15/17 [Last Taken Unknown] Insulin Aspart [Novolog] 0 units SC AC 07/15/17 [Last Taken Unknown] Metoprolol Tartrate [Lopressor] 25 mg PO BID 07/15/17 [Last Taken Unknown] Multivitamin [Multivitamins] 1 each PO DAILY 07/15/17 [Last Taken Unknown] Warfarin Sodium 2 mg PO DAILY 07/16/17 [Last Taken Unknown] Warfarin Sodium [Coumadin] 1 mg PO DAILY 07/16/17 [Last Taken Unknown] Exam - Exam Vital Signs: Vital Signs - Last Taken Temp 37.4 C 08/05/17 02:13 Pulse 104 H 08/05/17 02:13 Resp 26 H 08/05/17 02:13 BP 167/95 08/05/17 02:13 Pulse Ox 94 08/05/17 02:13 Constitutional: Present: Alert, Oriented x3, Cooperative, Middle aged ENT Exam: Present: hearing grossly normal Eye Exam: bilateral eye: normal inspection Neck: Present: full range of motion Back Exam: Present: normal inspection Breasts: Present: Exam deferred Respiratory: Present: chest non-tender, normal breath sounds, no respiratory distress Cardiovascular/Chest: Present: normal peripheral pulses, no chest tenderness, no edema, no JVD, systolic murmur Peripheral Pulses: dorsalis-pedis (R): 2+, dorsalis-pedis (L): 2+ Abdomen: Present: Normal bowel sounds, soft, nontender, nondistended, no rebound tenderness /Rectal: Present: Exam deferred Extremity: Present: normal range of motion, non-tender, normal inspection, no pedal edema Skin Exam: Present: warm/dry, other - bruising Neurologic: Present: oriented x 3 Appearance: Present: appropriate appearance, appropriate insight Eye contact: Present: cooperative, good eye contact Diagnostic Studies: Abnormal Lab Results 08/04/17 Range/Units 23:51 Troponin I 0.179 H* (0.00-0.10) ng/ml Laboratory Results WBC 7.2 K/mm3 (4.0-10.5) 08/04/17 13:28 RBC 3.85 M/mm3 (4.2-5.4) L 08/04/17 13:28 Hgb 12.9 gm/dL (12.5-16.0) 08/04/17 13: Hct 42.2 % (37.0-47.0) 08/04/17 13: MCV 109.6 fl (78-100) H 08/04/17 13: MCH 33.5 pg (27-31) H 08/04/17 13: MCHC 30.6 g/dl (32-36) L 08/04/17 13: RDW 17.1 % (11.5-14.0) H 08/04/17 13: Plt Count 206 K/mm3 (150-450) 08/04/17 13: MPV 10.1 fl (6.0-9.5) H 08/04/17 13: Immature Gran % (Auto) 0.70 % (0.001-0.429) H 08/04/17 13: Immature Gran # (Auto) 0.05 K/mm3 (0.000-0.0310) H 08/04/17 13: Neutrophils % 79.6 % (42-75.0) H 08/04/17 13: Lymphocytes % 9.8 % (20-51) L 08/04/17 13: Monocytes % 8.0 % (0.0-9) 08/04/17: Eosinophils % 1.1 % (0.0-3.0) 08/04/17: Basophils % 0.8 % (0.0-1.0) 08/04/17 13: Nucleated RBC % 0.0 k/mm3 (0-1) 08/04/17 13: Neutrophils # 5.8 K/mm3 (1.3-6.0) 08/04/17 13: Lymphocytes # 0.7 k/mm3 (1.5-3.5) L 08/04/17 13: Monocytes # 0.6 k/mm3 (0.0-1.0) 08/04/17: Eosinophils # 0.1 k/mm3 (0.0-0.7) 08/04/17 13: Absolute Basophils 0.1 k/mm3 (0.0-0.1) 08/04/17 13: Sodium 143 mmol/L (132-142) H 08/04/17 13:28 Plasma Sodium 144 mmol/L (130-142) H 08/04/17 13:28 Potassium 4.0 mmol/L (3.4-4.6) 08/04/17 13:28 Chloride 109 mmol/L (97-106) H 08/04/17 13:28 Carbon Dioxide 18.8 mmol/L (24-32.6) L 08/04/17 13:28 Anion Gap 19.2 mmol/L (6.8-13.8) H 08/04/17 13:28 BUN 74 mg/dL (3-23) H 08/04/17 13:28 Creatinine 2.69 mg/dL (0.4-1.4) H 08/04/17 13:28 Est GFR (Non-Af Amer) 19 mL/min (60-130) L 08/04/17 13:28 BUN/Creatinine Ratio 27.5 (9.0-21.6) H 08/04/17 13:28 Random Glucose 185 mg/dL (70-110) H 08/04/17 13:28 Calcium 9.6 mg/dL (7.9-10.9) 08/04/17 13:28 Calcium Adj for Albumin 10.0 mg/dL (8.4-10.2) 08/04/17 13:28 Total Bilirubin 0.8 mg/dL (0.0-1.1) 08/04/17 13:28 AST 22 U/L (0-48) 08/04/17 13:28 ALT 17 U/L (19-67) L 08/04/17 13:28 Alkaline Phosphatase 138 U/L (50-170) 08/04/17 13:28 CK-MB (CK-2) 0.9 ng/mL (0.0-9.0) 08/04/17 14:36 Troponin I 0.179 ng/ml (0.00-0.10) H* 08/04/17 23:51 B-Natriuretic Peptide 24420 pg/mL (5-325) H 08/04/17 13:28 Total Protein 7.1 gm/dL (6.2-8.2) 08/04/17 13:28 Albumin 3.1 gm/dl (3.4-5.0) L 08/04/17 13:28 Urine Color Dark yellow 08/04/17 13:52 Urine Appearance Slightly cloudy 08/04/17 13:52 Urine pH 5.5 pH (5.0-7.0) 08/04/17 13:52 Ur Specific [place] 1.020 SP.GR. (1.005-1.010) 08/04/17 13:52 Urine Protein 15 mg/dL (NEGATIVE) H 08/04/17 13:52 Urine Glucose (UA) Negative mg/dL (NEGATIVE) 08/04/17 13:52 Urine Ketones Negative mg/dL (NEGATIVE) 08/04/17 13:52 Urine Blood 5 /ul (NEGATIVE) H 08/04/17 13:52 Urine Nitrate Negative (NEGATIVE) 08/04/17 13:52 Urine Bilirubin Negative mg/dl (NEGATIVE) 08/04/17 13:52 Prot Sulfosalicylic Acd Negative mg/dL (0) 08/04/17 13:52 Urine Urobilinogen Normal EU/dl (NORMAL) 08/04/17 13:52 Ur Leukocyte Esterase 100 /ul (NEGATIVE) H 08/04/17 13:52 Urine RBC None seen /hpf (0-5) 08/04/17 13:52 Urine WBC 5-10 /hpf (0-5) H 08/04/17 13:52 Ur Epithelial Cells Trace /hpf (0-5) 08/04/17 13:52 Urine Bacteria Trace (NONE) 08/04/17 13:52 Urine Culture Comments Culture to follow 08/04/17 13:52 Assessment/Plan - Narrative Narrative: CHF on adm BNP [id number] will continue to monitor On adm troponin 0.208---->0.179 trending down Front Office Attendant took pt off Lasix and instructed that he will resume when he sees fit. pt currently euvolemic Chronic kidney disease On adm cre 2.64, Bun 74 Pt had right kidney transplant Continue to monitor bmp Afib On therapeutic dose of Coumadin, pharmacy to dose Continue with telemetry monitoring Recurrent right pleural effusion 3 weeks ago pt had thoracentesis with >16K removed 08/04/17 Seen on CXR: large pleural effusion. likely will need another thoracentesis or pleurx cath Code status : full DVT ppx : pt already on therapeutic Coumadin GI ppx: Pepcid Time 45minutes - Assessment/Plan (1) CHF (congestive heart failure) Problem: Chronic Qualifiers: Congestive heart failure type: unspecified congestive heart failure type Congestive heart failure chronicity: chronic Qualified Code(s): I50.9 - Heart failure, unspecified (2) Acute worsening of stage 3 chronic kidney disease Problem: Chronic (3) Recurrent right pleural effusion Problem: Acute (4) Atrial fibrillation Problem: Chronic Qualifiers: Atrial fibrillation type: chronic Qualified Code(s): I48.2 - Chronic atrial fibrillation (5) Diabetes mellitus Problem: Chronic Qualifiers: Diabetes mellitus type: type 2 Diabetes mellitus complication status: with kidney complications Diabetes mellitus complication detail: with chronic kidney disease Diabetes mellitus jail insulin use: without intermodal dispatcher use Chronic kidney disease stage: stage 4 (severe) Qualified Code(s): E11.22 - Type 2 diabetes mellitus with diabetic chronic kidney disease; N18.4 - Chronic kidney disease, stage 4 (severe) (6) HTN (hypertension) Problem: Chronic Qualifiers: Hypertension type: essential hypertension Qualified Code(s): I10 - Essential (primary) hypertension
[2017-08-05] MEDS: oxyCODONE HCL/ACETAMINOPHEN 1 TAB TABLET PO PRN (03:57)
[2017-08-05 06:20] LABS: Prothrombin Time (Patient) 34.8 Seconds (9.4-11.4)
[2017-08-05 06:21] LABS: INR 3.35 INR (0.90-1.10)
[2017-08-05] MEDS ORDERED: ALBUTEROL SULFATE 2.5 MG/0.5 ML VIAL.NEB IH PRN (06:25)
[2017-08-05 06:38] LABS: BNP * Greater than 35000 pg/mL (5-325); BUN/Creatinine Ratio 31.5 (9.0-21.6); Blood Urea Nitrogen 75 mg/dL (3-23); Calcium * 8.8 mg/dL (7.9-10.9); Carbon Dioxide 20.3 mmol/L (24-32.6); Chloride 110 mmol/L (97-106); Estimated Creat Clear 15.2; Glucose * 274 mg/dL (70-110); Potassium 4.3 mmol/L (3.4-4.6); Sodium 141 mmol/L (132-142)
[2017-08-05 06:43] LABS: Troponin I 0.189 ng/ml (0.00-0.10)
[2017-08-05] MEDS: CALCITRIOL 0.25 MCG CAPSULE PO SCH (08:31)
[2017-08-05] MEDS: INSULIN GLARGINE,HUM.REC.ANLOG 100 UNITS/ML VIAL SC SCH (08:31)
[2017-08-05] MEDS: ASPIRIN 81 MG TABLET.DR PO SCH (08:31)
[2017-08-05] MEDS: CYANOCOBALAMIN 1,000 MCG TABLET PO SCH (08:32)
[2017-08-05] MEDS: MULTIVITAMINS 1 CAP CAPSULE PO SCH (08:32)
[2017-08-05] MEDS: predniSONE 5 MG TABLET PO SCH (08:32)
[2017-08-05] MEDS: TACROLIMUS ANHYDROUS 0.5 MG CAPSULE PO SCH ×2 (08:32→20:45)
[2017-08-05] MEDS: METOPROLOL TARTRATE 25 MG TABLET PO SCH ×2 (08:33→20:45)
[2017-08-05] MEDS: ALLOPURINOL 100 MG TABLET PO SCH (08:33)
[2017-08-05] MEDS ORDERED: PHYTONADIONE (VIT K1) 10 MG/ML AMPUL SC ONE (09:11)
[2017-08-05] MEDS ORDERED: FUROSEMIDE 10 MG/ML VIAL IV ONE ×3 (12:55→16:29)
--- NOTE | 2017-08-05 13:10 | PN ---
Subjective - Date and Time Seen Date: 08/05/17 Time: 13:04 Subjective Narrative: Complain of weakness no chest pain no shortness of breath Objective - Review of Systems Generalized/Overall Review: Reports: Weakness Respiratory: Reports: No Symptoms Reported Cardiac: Reports: No Symptoms Reported Abdominal: Reports: No Symptoms Reported Genitourinary Symptoms: Reports: No Symptoms Reported Musculoskeletal Complaints: Reports: No Symptoms Reported - Vitals Vitals: Last Vital Signs Temp 36.5 C 08/05/17 12:14 Pulse 83 08/05/17 12:14 Resp 16 08/05/17 12:14 BP 135/78 08/05/17 12:14 Pulse Ox 99 08/05/17 12:14 - Abnormal Lab Findings Abnormal Lab Findings: Abnormal Lab Results 08/04/17 08/05/17 08/05/17 Range/Units 23:51 06:05 06:05 PT 34.8 H (9.4-11.4) Seconds INR (Anticoag Therapy) 3.35 H (0.90-1.10) INR Plasma Sodium 144 H (130-142) mmol/L Chloride 110 H (97-106) mmol/L Carbon Dioxide 20.3 L (24-32.6) mmol/L Anion Gap 15.0 H (6.8-13.8) mmol/L BUN 75 H (3-23) mg/dL Creatinine 2.38 H (0.4-1.4) mg/dL Est GFR (Non-Af Amer) 22 L (60-130) mL/min BUN/Creatinine Ratio 31.5 H (9.0-21.6) Random Glucose 274 H D (70-110) mg/dL Troponin I 0.179 H* 0.189 H* (0.00-0.10) ng/ml B-Natriuretic Peptide Greater than 77800 H (5-325) pg/mL - Exam Constitutional: Present: Alert, Oriented x3 Neck: Present: full range of motion Respiratory: Present: lungs clear Cardiovascular/Chest: Present: regular rate, rhythm, no JVD, systolic murmur Abdomen: Present: soft, nontender Extremity: Present: no pedal edema Skin Exam: Present: normal color Neurologic: Present: catholic priest II-XII nml as tested Appearance: Present: appropriate appearance Assessment/Plan - Problems/Diagnosis (1) CHF (congestive heart failure) Problem: Chronic Qualifiers: Congestive heart failure type: unspecified congestive heart failure type Congestive heart failure chronicity: chronic Qualified Code(s): I50.9 - Heart failure, unspecified (2) CRF (chronic renal failure) Problem: Chronic Qualifiers: Chronic kidney disease stage: stage 4 (severe) Qualified Code(s): N18.4 - Chronic kidney disease, stage 4 (severe) (3) History of kidney transplant Problem: Chronic (4) Pleural effusion Problem: Chronic Narrative: Chronic and recurrent pleural effusion due to congestive heart failure cardiomyopathy I have made arrangement for her to be transferred to [facility] but as of now there is no bed available for the meantime they agree that I need to reverse the prolonged INR to be able to do thoracentesis of the large amount of pleural effusion I have given some subcutaneous vitamin K and I have ordered present frozen plasma and will be given some IV Lasix before giving the past frozen plasma (5) Diabetes 1.5, managed as type 1 Problem: Chronic
[2017-08-05] MEDS: INSULIN LISPRO 100 UNITS/ML VIAL SC SCH ×2 (13:31→16:50)
[2017-08-05] MEDS ORDERED: METOLAZONE 5 MG TABLET PO STA (14:32)
[2017-08-05 16:21] LABS: Prothrombin Time (Patient) 16.5 Seconds (9.4-11.4)
[2017-08-05 16:22] LABS: INR 1.59 INR (0.90-1.10)
[2017-08-05] MEDS ORDERED: PHYTONADIONE (VIT K1) 5 MG TABLET PO ONE (16:30)
[2017-08-05] MEDS ORDERED: METOLAZONE 5 MG TABLET PO ONE (16:30)
[2017-08-05] MEDS ORDERED: MIRTAZAPINE 15 MG TABLET PO SCH (21:00)
[2017-08-05] MEDS ORDERED: ATORVASTATIN CALCIUM 40 MG TABLET PO SCH (21:00)
[2017-08-06 05:58] LABS: Hematocrit 33.3 % (37.0-47.0); Hemoglobin 9.9 gm/dL (12.5-16.0); Mean Cell Volume 110.3 fl (78-100); Mean Corpuscular Hemoglobin 32.8 pg (27-31); Mean Corpuscular Hgb Conc 29.7 g/dl (32-36); Mean Platelet Volume 9.8 fl (6.0-9.5); Neutrophil # 3.8 K/mm3 (1.3-6.0); Neutrophil % 73.3 % (42-75.0); Platelet Count 110 K/mm3 (150-450); Red Blood Count 3.02 M/mm3 (4.2-5.4); Red Cell Distribution Width 16.8 % (11.5-14.0); White Blood Count 5.1 K/mm3 (4.0-10.5)
[2017-08-06 06:21] LABS: INR 1.44 INR (0.90-1.10)
[2017-08-06 06:29] LABS: Albumin * 2.6 gm/dl (3.4-5.0); BUN/Creatinine Ratio 30.1 (9.0-21.6); Bilirubin, Total 0.6 mg/dL (0.0-1.1); Calcium * 9.2 mg/dL (7.9-10.9); Carbon Dioxide 23.1 mmol/L (24-32.6); Potassium 4.1 mmol/L (3.4-4.6)
[2017-08-06] MEDS: INSULIN LISPRO 100 UNITS/ML VIAL SC SCH ×2 (07:07→12:36)
[2017-08-06] MEDS: MULTIVITAMINS 1 CAP CAPSULE PO SCH (09:31)
[2017-08-06] MEDS: predniSONE 5 MG TABLET PO SCH (09:31)
[2017-08-06] MEDS: METOPROLOL TARTRATE 25 MG TABLET PO SCH (09:31)
[2017-08-06] MEDS: TACROLIMUS ANHYDROUS 0.5 MG CAPSULE PO SCH (09:31)
[2017-08-06] MEDS: CALCITRIOL 0.25 MCG CAPSULE PO SCH (09:31)
[2017-08-06] MEDS: ASPIRIN 81 MG TABLET.DR PO SCH (09:31)
[2017-08-06] MEDS: INSULIN GLARGINE,HUM.REC.ANLOG 100 UNITS/ML VIAL SC SCH (09:31)
[2017-08-06] MEDS: CYANOCOBALAMIN 1,000 MCG TABLET PO SCH (09:32)
[2017-08-06] MEDS: ALPRAZolam 0.25 MG TABLET PO SCH ×2 (09:32→14:06)
[2017-08-06] MEDS: ALLOPURINOL 100 MG TABLET PO SCH (09:32)
[2017-08-06 12:12] VITALS: BP 103/43
[2017-08-06] MEDS: oxyCODONE HCL/ACETAMINOPHEN 1 TAB TABLET PO PRN (12:33)
[2017-08-06] MEDS ORDERED: HEPARIN SODIUM,PORCINE 5,000 UNITS/ML VIAL IV ONE (13:02)
[2017-08-06] MEDS ORDERED: HEPARIN SODIUM,PORCINE/D5W 25,000 UNITS/500 ML BAG IV PRN (13:02)
[2017-08-06 13:29] LABS: Hematocrit 34.5 % (37.0-47.0); Hemoglobin 10.5 gm/dL (12.5-16.0); Mean Cell Volume 109.9 fl (78-100); Mean Corpuscular Hemoglobin 33.4 pg (27-31); Mean Corpuscular Hgb Conc 30.4 g/dl (32-36); Mean Platelet Volume 10.3 fl (6.0-9.5); Neutrophil % 78.8 % (42-75.0); Platelet Count 144 K/mm3 (150-450); Red Blood Count 3.14 M/mm3 (4.2-5.4); Red Cell Distribution Width 16.8 % (11.5-14.0); White Blood Count 6.3 K/mm3 (4.0-10.5)
[2017-08-06 13:39] LABS: Prothrombin Time (Patient) 14.4 Seconds (9.4-11.4)
[2017-08-06 13:43] LABS: INR 1.38 INR (0.90-1.10); Partial Thrombolplastin Time 31.6 Seconds (24-32)
[2017-08-06] MEDS ORDERED: WARFARIN SODIUM 1 MG TABLET PO SCH (17:00)
[2017-08-09] MEDS ORDERED: WARFARIN SODIUM 2 MG TABLET PO SCH (17:00)
--- NOTE | 2017-08-17 16:08 | DS ---
Transfer Discharge Summary - Diagnosis(s)/Problems (1) Pleural effusion, right Problem: Acute (2) Recurrent right pleural effusion Problem: Acute (3) S/P thoracentesis Problem: Acute (4) Acute renal failure (ARF) Problem: Chronic (5) Acute worsening of stage 3 chronic kidney disease Problem: Chronic (6) Atrial fibrillation Problem: Chronic (7) History of kidney transplant Problem: Chronic (8) Pleural effusion Problem: Chronic (9) Pulmonary edema Problem: Chronic (10) S/P kidney transplant Problem: Chronic (11) Stage 4 chronic kidney disease Problem: Chronic - Course Description of Stay: The patient was admitted for recurrent right-sided pleural effusion, congestive heart failure and LETICIA on CKD in a renal transplant patient. The patient was awaiting transfer to the [facility], she had a therapeutic ultrasound-guided right-sided thoracentesis with removal of 1150 mL of pleural fluid. The patient has paroxysmal atrial fibrillation and went into atrial fibrillation overnight on 08/05/2017-08/06/2017 and thus she was started on a heparin drip after her thoracentesis and prior to transfer to the [facility]. This was discussed with the accepting physician at the [place] who agreed with this plan of care. This way, the heparin gtt can be stopped approximately 6 hours prior to the planned Pleurx placement. The patient was transferred in fair yet stable condition. Procedures Performed: see notes below Procedures: Therapeutic ultrasound-guided right-sided thoracentesis with removal of 1150 mL of pleural fluid on 08/06/2017 - Medications Medications: Active Medications Discontinued Medications Acetaminophen (Tylenol) 650 mg PO Q4H PRN PRN Reason: Pain Stop: 09/04/17 02:39 Last Admin: 08/05/17 21:16 Dose: 650 mg Allopurinol (Zyloprim) 200 mg PO DAILY KHADIJAH Stop: 09/04/17 09:01 Last Admin: 08/06/17 09:32 Dose: 200 mg Alprazolam (Xanax) 0.25 mg PO QID KHADIJAH Stop: 09/04/17 02:16 Last Admin: 08/06/17 14:06 Dose: 0.25 mg Aspirin (Aspirin Chewable) 324 mg PO ONCE ONE Stop: 08/04/17 14:34 Last Admin: 08/04/17 14:37 Dose: 324 mg Aspirin (Aspirin Chewable) 243 mg PO ONCE ONE Stop: 08/04/17 14:38 Last Admin: 08/04/17 14:42 Dose: Not Given Aspirin (Aspirin Enteric Coated) 81 mg PO DAILY KHADIJAH Stop: 09/04/17 09:01 Last Admin: 08/06/17 09:31 Dose: 81 mg Atorvastatin Calcium (Lipitor) 80 mg PO HS KHADIJAH Stop: 09/04/17 21:01 Last Admin: 08/05/17 20:44 Dose: 80 mg Calcitriol (Calcitriol) 0.25 mcg PO DAILY KHADIJAH Stop: 09/04/17 09:01 Last Admin: 08/06/17 09:31 Dose: 0.25 mcg Clopidogrel Bisulfate (Plavix) 75 mg PO ONCE ONE Stop: 08/04/17 14:34 Last Admin: 08/04/17 14:37 Dose: 75 mg Cyanocobalamin (Vitamin B-12) 1,000 mcg PO DAILY KHADIJAH Stop: 09/04/17 09:01 Last Admin: 08/06/17 09:32 Dose: 1,000 mcg Furosemide (Lasix) 80 mg IV ONCE ONE Stop: 08/05/17 13:02 Last Admin: 08/05/17 13:31 Dose: 80 mg Furosemide (Lasix) 100 mg IV ONCE ONE Stop: 08/05/17 16:30 Last Admin: 08/05/17 16:48 Dose: 100 mg Heparin Sodium (Porcine) (Heparin Sodium) 4,600 units 80 units/kg (4600 units) IV ONCE ONE Stop: 08/06/17 13:03 Last Admin: 08/06/17 13:56 Dose: 4,600 units Heparin Sodium/Dextrose (Heparin 25,000 Units/D5w 500 Ml) 25,000 units in 500 mls @ 0 mls/hr IV TITR PRN; Protocol; Titrate PRN Reason: Anticoagulation Stop: 09/05/17 13:03 Last Admin: 08/06/17 13:57 Dose: 10 ml/hr, 100 mls/hr Insulin Glargine (Lantus) 10 units SC DAILY KHADIJAH Stop: 09/04/17 09:01 Last Admin: 08/06/17 09:31 Dose: 10 units Insulin Human Lispro (Humalog) 0 units SC ACINS KHADIJAH PRN Reason: Protocol Stop: 09/04/17 12:31 Last Admin: 08/06/17 12:36 Dose: 4 units Metolazone (Zaroxolyn) 5 mg PO ONCE STA Stop: 08/05/17 14:33 Last Admin: 08/05/17 14:48 Dose: 5 mg Metolazone (Zaroxolyn) 5 mg PO ONCE ONE Stop: 08/05/17 16:31 Last Admin: 08/05/17 16:48 Dose: 5 mg Metoprolol Tartrate (Lopressor) 25 mg PO BID KHADIJAH Stop: 09/04/17 09:01 Last Admin: 08/06/17 09:31 Dose: 25 mg Mirtazapine (Remeron) 15 mg PO HS KHADIJAH Stop: 09/04/17 21:01 Last Admin: 08/05/17 20:51 Dose: Not Given Oxycodone/Acetaminophen (Percocet 5 Mg/325 Mg) 2 tab PO Q6H PRN PRN Reason: Mild pain Stop: 09/04/17 02:37 Last Admin: 08/06/17 12:33 Dose: 2 tab Phytonadione (Vitamin K) 10 mg SC ONCE ONE Stop: 08/05/17 09:12 Last Admin: 08/05/17 09:29 Dose: 10 mg Phytonadione (Vitamin K) 5 mg PO ONCE ONE Stop: 08/05/17 16:31 Last Admin: 08/05/17 16:48 Dose: 5 mg Prednisone (Prednisone) 5 mg PO DAILY KHADIJAH Stop: 09/04/17 09:01 Last Admin: 08/06/17 09:31 Dose: 5 mg Tacrolimus (Prograf) 1 mg PO BID KHADIJAH Stop: 09/04/17 09:01 Last Admin: 08/06/17 09:31 Dose: 1 mg - Disposition Disposition: [facility] Condition: Fair Discharge Date: 08/06/17
== END 2017-08-06 17:10 | disposition short-term general hospital (02) | DRG 187 ==
LOC: ER 12:07 → MS 15:05 → OBSVTOIN 08-05 13:02
PROVIDERS: ADMIT Internal Medicine; ATTEND Internal Medicine
PROC: 0W9930Z Drainage of Right Pleural Cavity with Drainage Device, Percutaneous Approach (ICD-10-PCS; principal; 2017-08-06)
DX: J90 Pleural effusion, not elsewhere classified (principal); N17.9 Acute kidney failure, unspecified; I50.42 Chronic combined systolic (congestive) and diastolic (congestive) heart failure; N18.4 Chronic kidney disease, stage 4 (severe); Z94.0 Kidney transplant status; I48.91 Unspecified atrial fibrillation; I12.9 Hypertensive chronic kidney disease with stage 1 through stage 4 chronic kidney disease, or unspecified chronic kidney disease; E11.22 Type 2 diabetes mellitus with diabetic chronic kidney disease; Z79.4 Long term (current) use of insulin; Z79.01 Long term (current) use of anticoagulants
CPT/HCPCS: 32555; 36415; 70450; 71010; 71020; 76942; 80048; 80053; 81001; 82553; 83880; 84484; 85025; 85610; 85730; 87077; 87081; 87086; 87186; 93005; 99285; G0378; P9060